=== PATIENT | female | born 2000 | race Hispanic/Latino ===

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

== ENCOUNTER 2021-12-03 10:14 | Emergency (ER) | payer OTHER ==
--- NOTE | 2021-12-03 11:24 | ER ---
Nurse's Notes [facility] Name: Evangelina Harley Age: 21 yrs Sex: Female : 2000 Arrival Date: 12/03/2021 Time: 10:17 Bed DIS5 Private MD: Diagnosis: Encounter for general adult medical examination without abnormal findings Presentation: 12/03 11:05 Chief complaint: Patient states: I'm dealing with a CPS case and I was told I need a iw mental evaluation. Coronavirus screen: At this time, the client does not indicate any symptoms associated with coronavirus-19. Ebola Screen: Patient negative for fever greater than or equal to 101.5 degrees Fahrenheit, and additional compatible Ebola Virus Disease symptoms Patient denies exposure to infectious person. Patient denies travel to an Ebola-affected area in the 21 days before illness onset. No symptoms or risks identified at this time. Initial Sepsis Screen: Does the patient meet any 2 criteria? No. Patient's initial sepsis screen is negative. Does the patient have a suspected source of infection? No. Patient's initial sepsis screen is negative. Risk Assessment: Do you want to hurt yourself or someone else? Patient reports no desire to harm self or others. Onset of symptoms was December 03, 2021. 11:05 Method Of Arrival: Ambulatory iw 11:05 Acuity: BILLY 4 iw Historical: - Allergies: 11:06 No Known Allergies; iw - Home Meds: 11:06 None [Active]; iw - PMHx: 11:06 None; iw - PSHx: 11:06 None; iw - Immunization history:: Client reports having NOT received the Covid vaccine. - Social history:: Smoking status: Reported history of juuling and/or vaping. Assessment: 10:50 Reassessment: pt not inlobby. iw Vital Signs: 11:05 BP 126 / 73; Pulse 78; Resp 16; Temp 98.1; Pulse Ox 98% on R/A; ED Course: 10:17 Patient arrived in ED. mr 11:04 Kyree Gandhi MD is Attending Physician. brandy 11:06 Triage completed. iw 11:06 Arm band placed on. iw 11:23 Parmjit Leija MD is Referral Physician. brandy 11:29 No provider procedures requiring assistance completed. Patient did not have IV access bm7 during this emergency room visit. Administered Medications: No medications were administered Outcome: :24 Discharge ordered by . brandy 11: Discharged to home ambulatory. bmEver : Condition: good : Discharge instructions given to patient, Instructed on discharge instructions, follow up and referral plans. :29 Patient left the ED. bm7 Signatures: Kyree Gandhi MD MD cha Rivera, Mary mr Williams, Irene, RN RN Di Stoddard RN RN bm7
--- NOTE | 2021-12-03 11:24 | EDPHYS ---
Physician Documentation [facility] Name: Evangelina Harley Age: 21 yrs Sex: Female : 2000 Arrival Date: 12/03/2021 Time: 10:17 Bed DIS5 Private MD: ED Physician Kyree Gandhi HPI: 12/03 11:17 This 21 yrs old Female presents to ER via Ambulatory with complaints of Mental brandy Evaluation. 11:17 pt without complaint, want to resolve CPS ISSUE. Onset: The symptoms/episode brandy began/occurred at an unknown time. Severity of symptoms: At their worst the symptoms were very mild in the emergency department the symptoms are unchanged. Historical: - Allergies: 11:06 No Known Allergies; iw - Home Meds: 11:06 None [Active]; iw - PMHx: 11:06 None; iw - PSHx: 11:06 None; iw - Immunization history:: Client reports having NOT received the Covid vaccine. - Social history:: Smoking status: Reported history of juuling and/or vaping. ROS: 11:18 Constitutional: Negative for fever, chills, and weight loss, Eyes: Negative for injury, brandy pain, redness, and discharge, ENT: Negative for injury, pain, and discharge, Neck: Negative for injury, pain, and swelling, Cardiovascular: Negative for chest pain, palpitations, and edema, Respiratory: Negative for shortness of breath, cough, wheezing, and pleuritic chest pain, Abdomen/GI: Negative for abdominal pain, nausea, vomiting, diarrhea, and constipation, Back: Negative for injury and pain, : Negative for injury, bleeding, discharge, and swelling, MS/Extremity: Negative for injury and deformity, Skin: Negative for injury, rash, and discoloration, Neuro: Negative for headache, weakness, numbness, tingling, and seizure, Psych: Negative for depression, anxiety, suicide ideation, homicidal ideation, and hallucinations, Allergy/Immunology: Negative for hives, rash, and allergies, Endocrine: Negative for neck swelling, polydipsia, polyuria, polyphagia, and marked weight changes, Hematologic/Lymphatic: Negative for swollen nodes, abnormal bleeding, and unusual bruising. Exam: 11:18 Constitutional: This is a well developed, well nourished patient who is awake, alert, brandy and in no acute distress. Head/Face: Normocephalic, atraumatic. Eyes: Pupils equal round and reactive to light, extra-ocular motions intact. Lids and lashes normal. Conjunctiva and sclera are non-icteric and not injected. Cornea within normal limits. Periorbital areas with no swelling, redness, or edema. ENT: Nares patent. No nasal discharge, no septal abnormalities noted. Tympanic membranes are normal and external auditory canals are clear. Oropharynx with no redness, swelling, or masses, exudates, or evidence of obstruction, uvula midline. Mucous membranes moist. Neck: Trachea midline, no thyromegaly or masses palpated, and no cervical lymphadenopathy. Supple, full range of motion without nuchal rigidity, or vertebral point tenderness. No Meningismus. Chest/axilla: Normal chest wall appearance and motion. Nontender with no deformity. No lesions are appreciated. Cardiovascular: Regular rate and rhythm with a normal S1 and S2. No gallops, murmurs, or rubs. Normal PMI, no JVD. No pulse deficits. Respiratory: Lungs have equal breath sounds bilaterally, clear to auscultation and percussion. No rales, rhonchi or wheezes noted. No increased work of breathing, no retractions or nasal flaring. Abdomen/GI: Soft, non-tender, with normal bowel sounds. No distension or tympany. No guarding or rebound. No evidence of tenderness throughout. Back: No spinal tenderness. No costovertebral tenderness. Full range of motion. Skin: Warm, dry with normal turgor. Normal color with no rashes, no lesions, and no evidence of cellulitis. MS/ Extremity: Pulses equal, no cyanosis. Neurovascular intact. Full, normal range of motion. Neuro: Awake and alert, GCS 15, oriented to person, place, time, and situation. Cranial nerves II-XII grossly intact. Motor strength 5/5 in all extremities. Sensory grossly intact. Cerebellar exam normal. Normal gait. Psych: Awake, alert, with orientation to person, place and time. Behavior, mood, and affect are within normal limits. Vital Signs: 11:05 BP 126 / 73; Pulse 78; Resp 16; Temp 98.1; Pulse Ox 98% on R/A; iw MDM: 11:05 Patient medically screened. [facility] 11:22 Data reviewed: vital signs, nurses notes. [facility] 12/03 11:05 Order name: EKG; Complete Time: 11:19 [facility] 12/03 11:05 Order name: EKG - Nurse/Tech; Complete Time: 11:24 [facility] 12/03 11:05 Order name: IV Saline Lock; Complete Time: 11:24 [facility] 12/03 11:05 Order name: Labs collected and sent; Complete Time: 11:24 [facility] Administered Medications: No medications were administered Disposition Summary: 12/03/21 11:24 Discharge Ordered Location: Home [facility] Problem: new brandy Symptoms: have improved brandy Condition: Stable brandy Diagnosis - Encounter for general adult medical examination without abnormal findings [facility] Followup: [facility] - With: Private Physician - When: 2 - 3 days - Reason: Recheck today's complaints, Continuance of care, Re-evaluation by your physician Followup: [facility] - With: Parmjit Leija MD - When: 2 - 3 days - Reason: Recheck today's complaints, Re-evaluation by your physician Discharge Instructions: - Discharge Summary Sheet [facility] - Health Maintenance, Female [facility] - Managing Depression, Adult [facility] - Managing Anxiety, Adult [facility] Forms: - Medication Reconciliation Form [facility] - Work release form [facility] - Thank You Letter [facility] - Antibiotic Education [facility] - Prescription Opioid Use [facility] Signatures: Dispatcher [employer] EDKyree Vega MD MD cha Williams, Irene, RN RN iw Corrections: (The following items were deleted from the chart) 11:24 11:05 Suicide Screening ([place]) [place]. [place] [id number] 11:25 11:05 Urine Dipstick-Ancillary [place]. [place] [id number] 11:25 11:05 Urine Test ordered. [place] [id number]
[2021-12-03 11:34] VITALS: BP 126/73; TEMP 98.1; O2SAT 98
== END 2021-12-03 11:29 | disposition home or self-care (01) ==
LOC: ER 10:14
DX: Z02.79 Encounter for issue of other medical certificate (principal)
CPT/HCPCS: 99281

== ENCOUNTER 2023-03-20 15:31 | Emergency (ER) | payer OTHER ==
--- NOTE | 2023-03-20 15:42 | ER ---
Nurse's Notes [facility] Name: Evangelina Harley Age: 22 yrs Sex: Female : 2000 Arrival Date: 03/20/2023 Time: 15:31 Bed IW1 Private MD: Diagnosis: Pain in left knee;Pain in right knee;Pain in left elbow;Pain in right elbow Presentation: 03/20 15:34 Chief complaint: Fell down 2-3 wet stairs this morning, c/o pain in knees and elbows. hb Negative LOC. Coronavirus screen: At this time, the client does not indicate any symptoms associated with coronavirus-19. Ebola Screen: No symptoms or risks identified at this time. Initial Sepsis Screen: Does the patient meet any 2 criteria? No. Patient's initial sepsis screen is negative. Does the patient have a suspected source of infection? No. Patient's initial sepsis screen is negative. Risk Assessment: Do you want to hurt yourself or someone else? Patient reports no desire to harm self or others. Onset of symptoms was March 20, 2023. 15:34 Method Of Arrival: Ambulatory hb 15:34 Acuity: BILLY 4 hb Historical: - Allergies: 15:36 No Known Allergies; hb - Home Meds: 15:36 None [Active]; hb - PMHx: 15:36 ADD/ADHD; hb - PSHx: 15:36 None; hb Vital Signs: 15:37 BP 126 / 76; Pulse 74; Resp 16; Temp 97.9; Pulse Ox 100% on R/A; Weight 58.97 kg; hb Height 5 ft. 3 in. ; Pain 2/10; 15:37 Body Mass Index 23.03 (58.97 kg, 160.02 cm) hb 15:37 Pain Scale: Adult hb ED Course: 15:32 Patient arrived in ED. rg4 15:32 Maria Teresa Youssef FNP-C [facility]. kb 15:32 Ryan Vigil MD is Attending Physician. kb 15:35 Triage completed. hb 15:36 Arm band placed on. hb Administered Medications: No medications were administered Outcome: 15:42 Discharge ordered by MD. kb 15:50 Patient left the ED. hb Signatures: Mikael, Maria Teresa, PERSONNEL CLERKS SUPERVISOR-C PERSONNEL CLERKS SUPERVISOR-Ckb Isabel, Bianca, RN RN hb Harry, Radha rg4
--- NOTE | 2023-03-20 15:42 | EDPHYS ---
Physician Documentation [facility] Name: Evangelina Harley Age: 22 yrs Sex: Female : 2000 Arrival Date: 03/20/2023 Time: 15:31 Bed IW1 Private MD: ED Physician Ryan Vigil HPI: 03/20 15:52 This 22 yrs old Female presents to ER via Ambulatory with complaints of Fall kb Injury. 15:52 Patient is a 22-year-old female who was walking down some wet stairs 8:00 this morning kb and fell down a few of them. States she rolled down the stairs, denies hitting head or LOC. States she completed paperwork after the fall and left work at 9 AM went home and took a nap. States she came in now because she was told she needed to follow-up and get a work note to return tomorrow. Reports pain only to bilateral knees and elbows, worse on the right side. Full range of motion of all extremities, ambulates with steady gait.. Historical: - Allergies: 15:36 No Known Allergies; hb - Home Meds: 15:36 None [Active]; hb - PMHx: 15:36 ADD/ADHD; hb - PSHx: 15:36 None; hb ROS: 15:52 Constitutional: Negative for fever, chills, and weight loss, kb 15:52 MS/extremity: Positive for pain, of the right elbow, left elbow, right knee and left knee, 15:52 All other systems are negative, Exam: 15:52 Constitutional: This is a well developed, well nourished patient who is awake, alert, kb and in no acute distress. Head/Face: Normocephalic, atraumatic. ENT: Moist Mucous membranes Cardiovascular: Regular rate Respiratory: Respirations even and unlabored. No increased work of breathing. Talking in full sentences Skin: Warm, dry with normal turgor. Normal color. Neuro: Awake and alert, GCS 15, oriented to person, place, time, and situation. Moves all extremities. Normal gait. 15:52 Musculoskeletal/extremity: Extremities: grossly normal except: noted in the right elbow: abrasion, noted in the right knee: pain, tenderness, ROM: intact in all extremities, Circulation is intact in all extremities. Sensation intact. Weight bearing: able to fully bear weight, Vital Signs: 15:37 BP 126 / 76; Pulse 74; Resp 16; Temp 97.9; Pulse Ox 100% on R/A; Weight 58.97 kg; hb Height 5 ft. 3 in. ; Pain 2/10; 15:37 Body Mass Index 23.03 (58.97 kg, 160.02 cm) hb 15:37 Pain Scale: Adult hb MDM: 15:32 Patient medically screened. kb 15:53 Differential diagnosis: abrasion, contusion, fracture, sprain, strain. Data reviewed: kb vital signs, nurses notes. Test considered but Not performed: X-ray: X-ray of knees and elbows considered but patient has full range of motion, no swelling, no bony tenderness. . Counseling: I had a detailed discussion with the patient and/or guardian regarding the historical points, exam findings, and any diagnostic results supporting the discharge/admit diagnosis, the need for outpatient follow up, a family practitioner, to return to the emergency department if symptoms worsen or persist or if there are any questions or concerns that arise at home. Administered Medications: No medications were administered Disposition: 16:01 Co-signature as Attending Physician, Ryan Vigil MD I reviewed the patient's care rn provided by the Advanced Practice Provider and agree with the diagnosis and treatment plan. Disposition Summary: 03/20/23 15:42 Discharge Ordered Notes: Location: Home Condition: Stable kb Diagnosis - Pain in left knee kb - Pain in right knee kb - Pain in left elbow kb - Pain in right elbow kb Followup: kb - With: Emergency Department - When: As needed - Reason: Worsening of condition Followup: kb - With: Private Physician - When: 2 - 3 days - Reason: Recheck today's complaints, Continuance of care, Re-evaluation by your physician Discharge Instructions: - Musculoskeletal Pain kb - Discharge Summary Sheet hb Forms: - Medication Reconciliation Form kb - Thank You Letter kb - Antibiotic Education kb - Prescription Opioid Use kb - Patient Portal Instructions kb - Leadership Thank You Letter kb - Work release form hb Signatures: Maria Teresa Youssef FNP-C GUNJAN-Ryan Rodriguez MD MD rn Baxter, Heather, RN RN hb
--- OUTSIDE RECORDS SUMMARY | 2023-03-20 15:52 | XMS REPORT | Continuity of Care Document ---
:2000 Author Organization [facility] t Address [address] [place] [address] [place] [id number] Care Team Providers Name Role Phone PCP, PATIENT DOES NOT HAVE A Primary Care Physician Unavaila ble HAMILTON MARY Attending Clinician Unavailable HENNY BRADEN Attending Clinician Unavailable Henny Braden PA-C Attending Clinician Hamilton Mary MD Attending Clinician Doctor Unassigned, [place] Attending Clinician Unavailable LILIA PEDROZA Attending Clinician Unavailable LILIA PEDROZA Attending Clinician Unavailable Ultrasound, Ang-Mfm Attending Clinician Unavailable Lilia Pedroza MD Attending Clinician Lab, Ang - Db Attending Clinician Unavailable CHET AMEZQUITA Attending Clinician Unavailable CHET AMEZQUITA Attending Clinician Unavailable Jose Andrews NP Attending Clinician BETZAIDA ROBERTS Attending Clinician Unavailable Betzaida Roberts MD Attending Clinician JOSE ANDREWS Attending Clinician Unavailable Bharti Saunders Attending Clinician BHARTI CRUMP Attending Clinician Unavailable Unknown, Attending Attending Clinician Unavailable UNKNOWN, ATTENDING Attending Clinician Unavailable Honey Beltran MD Attending Clinician HONEY BELTRAN Attending Clinician Unavailable Nelsy WHCNP, Niraj Crowe Attending Clinician [phone] NIRAJ WHITTINGTON Attending Clinician Unavailable Wallace CHIRINOSP, Juan Diego Montes Attending Clinician JUAN DIEGO GONSALEZ Attending Clinician Unavailable Ana SOTO, Kusum Attending Clinician Alexei Ch MD Attending Clinician Delgado SOTO, Reuben Attending Clinician Richard SOTO, Mari Finley Attending Clinician [facility] Attending Clinician Unavailable Dylon Cedillo MD Attending Clinician Pratik Cotto DO Attending Clinician [address] [place] [address] Room Attending Clinician Unavailable Regan Powell MD Attending Clinician BETZAIDA ROBERTS Admitting Clinician Unavailable HAMILTON MARY Admitting Clinician Unavailable Tyra SOTO, Hamilton Shankar Admitting Clinician Alexei Ch MD Admitting Clinician Betzaida Roberts MD Admitting Clinician Payers Payer Name Policy Type Policy Number Effective Date Expiration Date [facility] [id number] 2020 00:00:00 BCBS [facility] [id number] 2022 00:00:00 MEDICAID [facility] [id number] 2020 00:00:00 HTW-RMCHP [id number] 2020 00:00:00 [place] [facility] [id number] 2016 HEALTH 00:00:00 Problems Condition Condition Condition Status Onset Resolution Last Treating Co mments Source Name Details Category Date Date Treatment Clinician Date 40 weeks 40 weeks Disease Active Unive rs gestation gestation 9-08 ity of of 00:00: [place] 00 [facility] Liveborn Liveborn Disease Active Unive rs , of , of 908 it y of guillory gu[place] , , 00 Me dical born in born in [facility] by by delivery delivery 31 weeks 31 weeks Disease Active Overview: Un keyla gestation gestation 7-07 Formattin i ty of of of 00:00: g of this [place] 00 note [facility] might be [facility] different from the original. Added automatic ally from request for surgery [id number] 39 weeks 39 weeks Disease Active Unive rs gestation gestation 7-07 ity of of of 00:00: [place] 00 [facility] Depression Depression Disease Active U nivers affecting affecting 2-07 [place] of 00[place] in third in third 00 Medica l trimester, trimester, Br anch antepartum antepartum Anxiety in Anxiety in Disease Active U nivers 2-07 ity of in first in first 00:00: [place] trimester, trimester, 00 Me dical antepartum antepartum Br anch Previous Previous Disease Active Unive rs 2-07 ity of section section 00:00: [place] complicati complicati 00 Me dical ng ng [employer] [facility] , , antepartum antepartum condition condition or or complicati complicati on on 9 weeks 9 weeks Disease Active Univers gestation gestation 2-07 ity of of of 00:00: [place] 00 [facility] High-risk High-risk Disease Active Uni vers 2-07 ity of in third in third 00:00: [place] trimester trimester 00 [facility] Other Other Disease Active Univers general general 3-31 ity of counseling counseling 00:00: [place] and advice and advice 00 Me dical for for [employer] contracept contracept anson anson management management Other Other Disease Active Univers depression depression 3-31 it y of 00:00: [place] 00 [facility] Personal Personal Disease Active Unive rs history of history of 8-28 it y of asthma asthma 00:00: [place] 00 [facility] Lab test Lab test Disease Active Overview: Un keyla positive positive 8-24 Formattin ity of for for 00:00: g of this [place] detection detection 00 note Medi adriel of of might be Branch COVID-19 COVID-19 different virus virus from the original. PCR neg Anemia, Anemia, Disease Active Univers antepartum antepartum 8-24 it y of , third , third 00:00: [place] trimester trimester 00 Medi adriel Branch Anemia, Anemia, Disease Active Univers antepartum antepartum 8-24 it y of , third , third 00:00: [place] trimester trimester 00 Medi adriel Branch Vapes Vapes Disease Active 2019-05 Overview: [facility] s nicotine nicotine 0-08 Formattin ity of containing containing 00:00: g of this [place] substance substance 00 note Medi adriel might be Branch different from the original. Reports no tobacco History of History of Disease Active 2019-05 U nivers depression depression 0-08 it y of 00:00: [place] 00 Medical Branch History of History of Disease Active 2019-05 U nivers anxiety anxiety 0-08 ity of 00:00: 00 Medical Branch History of History of Disease Active 2019-05 Overview : Univers ADHD ADHD 0-08 Formattin ity of 00:00: g of this [place] 00 note Medical might be Branch different from the original. Reports not on meds History of History of Disease Active 2019-05 Overview : Univers ADHD ADHD 0-08 Formattin ity of 00:00: g of this [place] 00 note Medical might be Branch different from the original. Reports not on meds Anxiety Anxiety Disease Active Overview: Univ ers 1 Formattin ity of 00:00: g of this [place] 00 note Medical might be Branch different from the original. not on meds Allergies, Adverse Reactions, Alerts Allergy Allergy Status Severity Reaction(s) Onset Inactive Treating Comm ents Source Name Type Date Date Clinician NO KNOWN Drug Active Univers ALLERGIE Class ity of S [facility] Social History Social Habit Start Date Stop Date Quantity Comments Source ASSERTION 2022-04-22 University of 00:00:00 [facility] Gender identity Universit y of [facility] Sexual orientation Univer sity of [facility] History of Social 2023-02-27 2023-02-27 Univers ity of function 00:00:00 00:00:00 [facility] Alcohol intake 2023-01-23 2023-01-23 Ex-drinker University 00:00:00 00:00:00 (finding) [facility] Exposure to 2022-07-15 2022-07-25 Not sure University SARS-CoV-2 (event) 00:00:00 08:57:00 [facility] Tobacco use and 2022-01-07 2022-01-07 Former smokeless Uni versity of exposure 00:00:00 00:00:00 tobacco user [facility] Tobacco Comment 2022-01-07 2022-01-07 vapes Universit y of 00:00:00 00:00:00 [facility] History of tobacco 2020-05-26 User of Univer sity of use 00:00:00 smokeless [facility] Sex Assigned At [birth year] Universit y of 00:00:00 00:00:00 [facility] Smoking Status Start Date Stop Date Source Smokes tobacco daily 2022-01-07 [facility] F[facility] Start Stop Current Ordering Indication Dosage Frequency Signature Comments Components Source Medication Medication Date Date Medication? Clinician (SIG) Name Name ibuprofen Yes 600mg 600 mg, Univ ers (IBU) 9-10 Oral, Q6H ity of tablet 600 05:00: ABX, First [place] mg 00 dose on [facility] 01/15/23 at 0000, Until Discontinu ed, Routine ibuprofen 2022-0 Yes 600mg 600 mg, Univ ers (IBU) 9-10 Oral, Q6H ity of tablet 600 05:00: ABX, First [place] mg 00 dose on [facility] 01/15/23 at 0000, Until Discontinu ed, Routine ibuprofen 2022-0 Yes [id number] 600mg Take 1 Univers 600 mg 9-10 tablet by ity of tablet 00:00: mouth [place] 00 every 6 Medical (six) Branch hours. ibuprofen 2022-0 Yes [id number] 600mg Take 1 Univers 600 mg 9-10 tablet by ity of tablet 00:00: mouth [place] 00 every 6 Medical (six) Branch hours. ibuprofen 2022-0 Yes [id number] 600mg Take 1 Univers 600 mg 9-10 tablet by ity of tablet 00:00: mouth [place] 00 every 6 Medical (six) Branch hours. ibuprofen 2022-0 Yes [id number] 600mg Take 1 Univers 600 mg 9-10 tablet by ity of tablet 00:00: mouth [place] 00 every 6 Medical (six) Branch hours. ibuprofen 2022-0 Yes [id number] 600mg Take 1 Univers 600 mg 9-10 tablet by ity of tablet 00:00: mouth [place] 00 every 6 Medical (six) Branch hours. ibuprofen 2022-0 Yes [id number] 600mg Take 1 Univers 600 mg 9-10 tablet by ity of tablet 00:00: mouth [place] 00 every 6 Medical (six) Branch hours. acetaminoph 2022-0 Yes 650mg 650 mg, Un keyla en -09 Oral, Q6H ity of (TYLENOL) 05:00: ABX, First [place] tablet 650 00 dose on Medica l mg 01/14/23 Branch at 0000, Until Discontinu ed, Routine acetaminoph 2022-0 Yes 650mg 650 mg, Un keyla en 09 Oral, Q6H ity of (TYLENOL) 05:00: ABX, First [place] tablet 650 00 dose on Medica l mg 01/14/23 Branch at 0000, Until Discontinu ed, Routine ketorolac 2022- No 30mg 30 mg, Unive rs (TORADOL) 01-14- Slow IV ity of injection 05:00: 23:01 Push, Q6H [place] 30 mg 00 :00 ABX, 4 Medical doses, Branch First dose on 01/14/23 at 0000, Last dose on 01/14/23 at 1800, Routine cephALEXin 2022-0 Yes [id number] 500mg Take 1 Univers 500 mg - capsule by ity of capsule 00:00: mouth [place] 00 every 6 Medical (six) Branch hours. HYDROcodone 2022-0 Yes [id number] 1{tbl} Take 1 Un keyla -acetaminop -09 tablet by ity of hen 5-325 00:00: mouth [place] mg tablet 00 every 6 Medical (six) Branch hours as needed for Pain (scale 7-10) (Alternate with Ibuprofen) . Indication s: acute pain gabapentin 2022-0 Yes [id number] 300mg Take 1 Univers 300 mg 9-09 capsule by ity of capsule 00:00: mouth in [place] 00 the Medical morning Branch and 1 capsule at noon and 1 capsule in the evening. 2022-0 Yes [id number] 1{tbl} Take 1 Univers vitamin 9-09 tablet by ity of w/FA tablet 00:00: mouth in [place] 00 the Medical morning. Branch cephALEXin 3-0 Yes [id number] 500mg Take 1 Univers 500 mg 9-09 capsule by ity of capsule 00:00: mouth [place] 00 every 6 Medical (six) Branch hours. HYDROcodone 3-0 Yes [id number] 1{tbl} Take 1 Un keyla -acetaminop 9-09 tablet by ity of hen 5-325 00:00: mouth [place] mg tablet 00 every 6 Medical (six) Branch hours as needed for Pain (scale 7-10) (Alternate with Ibuprofen) . Indication s: acute pain gabapentin 3-0 Yes [id number] 300mg Take 1 Univers 300 mg 9-09 capsule by ity of capsule 00:00: mouth in [place] 00 the Medical morning Branch and 1 capsule at noon and 1 capsule in the evening. 3-0 Yes [id number] 1{tbl} Take 1 Univers vitamin 9-09 tablet by ity of w/FA tablet 00:00: mouth in [place] 00 the Medical morning. Branch HYDROcodone 2022-0 Yes [id number] 1{tbl} Take 1 Un keyla -acetaminop 9-09 tablet by ity of hen 5-325 00:00: mouth [place] mg tablet 00 every 6 Medical (six) Branch hours as needed for Pain (scale 7-10) (Alternate with Ibuprofen) . Indication s: acute pain gabapentin 3-0 Yes [id number] 300mg Take 1 Univers 300 mg 9-09 capsule by ity of capsule 00:00: mouth in [place] 00 the Medical morning Branch and 1 capsule at noon and 1 capsule in the evening. 2023-0 Yes [id number] 1{tbl} Take 1 Univers vitamin 9-09 tablet by ity of w/FA tablet 00:00: mouth in [place] 00 the Medical morning. Branch HYDROcodone 3-0 Yes [id number] 1{tbl} Take 1 Un keyla -acetaminop 9-09 tablet by ity of hen 5-325 00:00: mouth [place] mg tablet 00 every 6 Medical (six) Branch hours as needed for Pain (scale 7-10) (Alternate with Ibuprofen) . Indication s: acute pain gabapentin 2023-0 Yes [id number] 300mg Take 1 Univers 300 mg 9-09 capsule by ity of capsule 00:00: mouth in [place] 00 the Medical morning Branch and 1 capsule at noon and 1 capsule in the evening. 2022-0 Yes [id number] 1{tbl} Take 1 Univers vitamin 9-09 tablet by ity of w/FA tablet 00:00: mouth in [place] 00 the Medical morning. Branch HYDROcodone 2022-0 Yes [id number] 1{tbl} Take 1 Un keyla -acetaminop 9-09 tablet by ity of hen 5-325 00:00: mouth [place] mg tablet 00 every 6 Medical (six) Branch hours as needed for Pain (scale 7-10) (Alternate with Ibuprofen) . Indication s: acute pain gabapentin 2022-0 Yes [id number] 300mg Take 1 Univers 300 mg 9-09 capsule by ity of capsule 00:00: mouth in [place] 00 the Medical morning Branch and 1 capsule at noon and 1 capsule in the evening. 2022-0 Yes [id number] 1{tbl} Take 1 Univers vitamin 9-09 tablet by ity of w/FA tablet 00:00: mouth [place] 00 the Medical morning. Branch gabapentin 2022-0 Yes [id number] 300mg Take 1 Univers 300 mg 9-09 capsule by ity of capsule 00:00: mouth in [place] 00 the Medical morning Branch and 1 capsule at noon and 1 capsule in the evening. 2022-0 Yes [id number] 1{tbl} Take 1 Univers vitamin 9-09 tablet by ity of w/FA tablet 00:00: mouth in [place] 00 the Medical morning. Branch HYDROcodone 2022-0 2022- No [id number] 1{tbl} Take 1 U nivers -acetaminop 9-09 10-23 tablet by it y of hen 5-325 00:00: 00:00 mouth [place] mg tablet 00 :00 every 6 Medical (six) Branch hours as needed for Pain (scale 7-10) (Alternate with Ibuprofen) . Indication s: acute pain cephALEXin 2022-0 2022- No [id number] 500mg Take 1 Univers 500 mg 9-09 -18 capsule by ity of capsule 00:00: 00:00 mouth [place] 00 :00 every 6 Medical (six) Branch hours. HYDROcodone 2022-0 Yes 1{tbl} 1 tablet, Univers -acetaminop 01-13 Oral, ity of hen (NORCO 23:00: Q6HPRN, [place] 5) 5-325 mg 00 Starting Medi adriel tablet 1 on Fri Branch tablet 01/13/23 at 1800, Until Discontinu ed, Routine, Pain (scale 7-10), Alternate with Ibuprofen HYDROcodone Yes 1{tbl} 1 tablet, Univers -acetaminop 01-13 Oral, ity of hen (NORCO 23:00: Q6HPRN, [place] 5) 5-325 mg 00 Starting Medi adriel tablet 1 on Fri Branch tablet 01/13/23 at 1800, Until Discontinu ed, Routine, Pain (scale 7-10), Alternate with Ibuprofen cephALEXin 2022- Yes 500mg 500 mg, Un keyla (KEFLEX) 01-13 Oral, Q6H, ity of capsule 500 23:00: 22:59 28 doses, [place] mg 00 :00 First dose Medical on Mon Branch 01/13/23 at 1800, Last dose on Mon01/20/23 at 1200, DANIELE
Re ason for Anti-Infec tive: Documented Infection< br>Documen amanda Infection Site: Urine<b r>Duration of Therapy: 7 days cephALEXin 2022- Yes 500mg 500 mg, Un keyla (KEFLEX) 01-13 Oral, Q6H, ity of capsule 500 23:00: 22:59 28 doses, [place] mg 00 :00 First dose Medical on Mon Branch 01/13/23 at 1800, Last dose on Mon01/20/23 at 1200, DANIELE
Re ason for Anti-Infec tive: Documented Infection< br>Documen amanda Infection Site: Urine<b r>Duration of Therapy: 7 days acetaminoph 0 2022- No 1000mg 1,000 mg, Univers en ADULT 01-13 IV ity of (OFIRMEV) 20:00: 20:26 Infusion, [place] injection 00 :00 at 400 Medical 1,000 mg mL/hr Branch Administer over 15 Minutes, ONCE, 1 dose, On Mon01/13/23 at 1500, Routine
Indicatio n: Perioperat anson Patient gabapentin 2022-0 Yes 300mg 300 mg, Uni vers (NEURONTIN) 01-13 Oral, TID, it y of capsule 300 19:00: First dose [place] mg 00 on Mon01/13/23 at Branch 1400, Until Discontinu ed, Routine gabapentin 2022-0 Yes 300mg 300 mg, Uni vers (NEURONTIN) 01-13 Oral, TID, it y of capsule 300 19:00: First dose [place] mg 00 on Mon01/13/23 at Branch 1400, Until Discontinu ed, Routine lactated 2022-0 2023- No 1000mL at 125 [facility] ers ringers IV 01-13 09-08 mL/hr, ity of infusion 15:15: 19:04 1,000 mL, Radhames as 1,000 mL 00 :00 IV Medical Infusion, Branch ONCE, 1 dose, On Mon01/13/23 at 1015, Routine rho(D) 2022-0 Yes 300ug 300 mcg, Univer s immune 01-13 Intramuscu ity of globulin 15:04: lar, ONCE, Radhames as (RHOGAM) 19 For 1 Medical syringe 300 dose, Branch mcg Conditiona l, Routine rho(D) 0 Yes 300ug 300 mcg, Univer s immune 01-13 Intramuscu ity of globulin 15:04: lar, ONCE, [place] as (RHOGAM) 19 For 1 Medical syringe 300 dose, Branch mcg Conditiona l, Routine diphenhydrA 2022-0 Yes 25mg 25 mg, [facility] ers MINE 01-13 Slow IV ity of (BENADRYL) 15:04: Push, [place] injection 14 Q6HPRN, Medical 25 mg Starting Branch on Mon01/13/23 at 1004, Until Discontinu ed, Routine, Itching diphenhydrA 2022-0 Yes 25mg 25 mg, [facility] ers MINE 01-13 Oral, ity of (BENADRYL) 15:04: Q6HPRN, [place] tablet 25 14 Starting Medica l mg on Mon01/13/23 at 1004, Until Discontinu ed, Routine, Sleep, Itching ondansetron 2022-0 Yes 4mg 4 mg, Slow Univers (ZOFRAN 01-13 IV Push, ity of (PF)) 15:04: Q8HPRN, [place] injection 4 14 Starting Medi adriel mg on Mon/8/23 at 1004, Until Discontinu ed, Routine, Nausea and Vomiting (N/V) bisacodyL 3-0 Yes 10mg 10 mg, Univer s (DULCOLAX) 01-13 Rectal, ity of suppository 15:04: QDAILYPRN, [place] 10 mg 14 Starting Medical on Mon Branch 01/13/23 at 1004, Until Discontinu ed, Routine, Constipati on simethicone 2022-0 Yes 160mg 160 mg, Un keyla (GAS RELIEF 01-13 Oral, ity of (SIMETHICON 15:04: PC+HSPRN, [place] E)) 14 Starting Medical chewable on Mon tablet 160 01/13/23 at mg 1004, Until Discontinu ed, Routine, Gas docusate 2022-0 Yes 200mg 200 mg, Unive rs (COLACE) 01-13 Oral, ity of capsule 200 15:04: QDAILYPRN, [place] mg 14 Starting Medical on Mon Branch 01/13/23 at 1004, Until Discontinu ed, Routine, Constipati on magnesium 2022-0 Yes 30mL 30 mL, Univer s hydroxide 01-13 Oral, ity of (MILK OF 15:04: QDAILYPRN, [place] as MAGNESIA) 14 Starting Medica l 400 mg/5 mL on Mon suspension 01/13/23 at 30 mL 1004, Until Discontinu ed, Routine, Constipati on diphenhydrA 3-0 Yes 25mg 25 mg, Univ ers MINE 01-13 Slow IV ity of (BENADRYL) 15:04: Push, [place] injection 14 Q6HPRN, Medical 25 mg Starting Branch on Mon01/13/23 at 1004, Until Discontinu ed, Routine, Itching diphenhydrA 3-0 Yes 25mg 25 mg, Univ ers MINE 01-13 Oral, ity of (BENADRYL) 15:04: Q6HPRN, [place] tablet 25 14 Starting Medica l mg on Mon Branch 01/13/23 at 1004, Until Discontinu ed, Routine, Sleep, Itching ondansetron 3-0 Yes 4mg 4 mg, Slow Univers (ZOFRAN 01-13 IV Push, ity of (PF)) 15:04: Q8HPRN, [place] injection 4 14 Starting Medi adriel mg on Mon Branch 01/13/23 at 1004, Until Discontinu ed, Routine, Nausea and Vomiting (N/V) bisacodyL 2022-0 Yes 10mg 10 mg, Univer s (DULCOLAX) 08 Rectal, ity of suppository 15:04: QDAILYPRN, [place] 10 mg 14 Starting Medical on Mon Branch 01/13/23 at 1004, Until Discontinu ed, Routine, Constipati on simethicone 202-0 Yes 160mg 160 mg, Un keyla (GAS RELIEF 01-13 Oral, ity of (SIMETHICON 15:04: PC+HSPRN, [place] E)) 14 Starting Medical chewable on Mon tablet 160 01/13/23 at mg 1004, Until Discontinu ed, Routine, Gas docusate 2022-0 Yes 200mg 200 mg, Unive rs (COLACE) 01-13 Oral, ity of capsule 200 15:04: QDAILYPRN, [place] mg 14 Starting Medical on Mon Branch 01/13/23 at 1004, Until Discontinu ed, Routine, Constipati on magnesium 2022-0 Yes 30mL 30 mL, Univer s hydroxide 01-13 Oral, ity of (MILK OF 15:04: QDAILYPRN, Radh[place] as MAGNESIA) 14 Starting Medica l 400 mg/5 mL on Mon Branch suspension 01/13/23 at 30 mL 1004, Until Discontinu ed, Routine, Constipati on lactated 2023-0 2023- No 1000mL at 125 Univ ers ringers IV 01-13 09-08 mL/hr, ity of infusion 15:04: 20:44 1,000 mL, Radhames as 1,000 mL 14 :43 IV Medical Infusion, Branch PRN, 1 dose, Starting on Mon01/13/23 at 1004, Until Mon01/13/23 at 1544, Routine escitalopra 2022-0 Yes 10mg 10 mg, Univ ers m oxalate 08 Oral, ity of (LEXAPRO) 14:00: DAILY, [place] tablet 10 00 First dose Medi adriel mg on Mon Branch 01/13/23 at 0900, Until Discontinu ed, Routine escitalopra 2022-0 Yes 10mg 10 mg, Univ ers m oxalate 01-13 Oral, ity of (LEXAPRO) 14:00: DAILY, [place] tablet 10 00 First dose Medi adriel mg on Mon Branch 01/13/23 at 0900, Until Discontinu ed, Routine mupirocin 2022-0 Yes Intra-op Univ ers (BACTROBAN 01-13 ity of OINT) 2 % 13:44: [place] skin 00 Medical ointment Branch mupirocin 2022-0 Yes Intra-op Univ ers (BACTROBAN 01-13 ity of OINT) 2 % 13:44: [place] skin 00 Medical ointment Branch sodium 2022-0 Yes PRN, Univers chloride 01-13 Starting ity of 0.9 % 13:36: on Fri [place] irrigation 00 01/13/23 at Medi adriel solution 0836, Branch Until Discontinu ed, Intra-op sodium 2022-0 Yes PRN, Univers chloride 01-13 Starting ity of 0.9 % 13:36: on Fri [place] irrigation 00 01/13/23 at Medi adriel solution 0836, Branch Until Discontinu ed, Intra-op ondansetron 2022- No 4mg 4 mg, Slow Univers (ZOFRAN 01-13 IV Push, ity of (PF)) 13:30: 14:23 ONCE, 1 [place] injection 4 00 :00 dose, On Medi adriel mg Mon01/13/23 Branch at 0830, Routine naloxone 2022- No .2mg 0.2 mg, Unive rs (NARCAN) 01-13 Intramuscu ity of injection 13:24: 13:23 lar, [place] 0.2 mg 32 :32 Q3HPRN, Medical Starting Branch on Mon01/13/23 at 0824, Until 01/14/23 at 0823, Routine, Itching naloxone 2022- Yes .4mg 0.4 mg, Unive rs (NARCAN) 01-13 Slow IV ity of injection 13:23: 23:14 Push, PRN [place] 0.4 mg 59 :19 - SEE Medical INSTRUCTIO Branch NS, Starting on Mon01/13/23 at 0823, Until 01/15/23 at 1814, Routine, Analgesia Recovery naloxone 2022- Yes .4mg 0.4 mg, Unive rs (NARCAN) 01-13 Slow IV ity of injection 13:23: 23:14 Push, PRN [place] 0.4 mg 59 :19 - SEE Medical INSTRUCTIO Branch NS, Starting on Mon01/13/23 at 0823, Until Mon01/15/23 at 1814, Routine, Analgesia Recovery oxytocin 2022- No 300mL/h 300 mL/hr, Univers (PITOCIN) 01-13 IV ity of 30 units in 12:33: 15:04 Infusion, [place] NS 500 mL 05 :27 SEE-INSTRU Medi adriel IV infusion CTIONS, Branc h Starting on Mon01/13/[address] at 300 mL/hr for 1 hr then 150 mL/hr for 1 hr. For post delivery uterotonic .
mupirocin 2022- No Univers (BACTROBAN 01-13 ity of OINT) 2 % 12:15: 14:38 [place] skin 30 :00 Medical ointment Branch [id number] IV 2022- No 1000mL at 1-125 U nivers infusion 01-13 mL/hr, IV ity o f 1,000 mL 10:40: 15:04 Infusion, Radhames as 43 :36 TITRATE, Medical Starting Branch on Mon01/13/23 at 0540, Until Mon01/13/23 at 1004, Routine escitalopra Yes [id number] 10mg Take 1 Univers m oxalate 9-07 tablet by ity o f 10 mg 00:00: mouth [place] tablet 00 every Medical morning. Branch escitalopra Yes [id number] 10mg Take 1 Univers m oxalate 9-07 tablet by ity o f 10 mg 00:00: mouth [place] tablet 00 every Medical morning. Branch escitalopra 0 Yes [id number] 10mg Take 1 Univers m oxalate 9-07 tablet by ity o f 10 mg 00:00: mouth [place] tablet 00 every Medical morning. Branch escitalopra Yes [id number] 10mg Take 1 Univers m oxalate 9-07 tablet by ity o f 10 mg 00:00: mouth [place] tablet 00 every Medical morning. Branch cephALEXin 2022- Yes [id number] 500mg Take 1 Univers 500 mg 01-06 capsule by ity of capsule 00:00: 04:59 mouth 4 [place] 00 :00 (four) Medical times Branch daily for 7 days. cephALEXin 2022- Yes [id number] 500mg Take 1 Univers 500 mg 01-06 capsule by ity of capsule 00:00: 04:59 mouth 4 [place] 00 :00 (four) Medical times Branch daily for 7 days. cephALEXin 2022- Yes [id number] 500mg Take 1 Univers 500 mg 01-06 capsule by ity of capsule 00:00: 04:59 mouth 4 [place] 00 :00 (four) Medical times Branch daily for 7 days. cephALEXin 2022- No [id number] 500mg Take 1 Univers 500 mg 12-09 capsule by ity of capsule 00:00: 04:59 mouth 4 [place] 00 :00 (four) Medical times Branch daily for 7 days. Nitrofurant 2022- No [id number] 100mg Take 1 Univers oin&Nit. 12-06 capsule by ity of Macrocryst 00:00: 04:59 mouth in [place] (MACROBID) 00 :00 the Medical 100 mg morning Branch capsule and 1 capsule in the evening. Do all this for 7 days. Nitrofurant 2022- No [id number] 100mg Take 1 [facility] oin&Nit. 12-06 capsule by ity of [place] 00:00: 00:00 mouth in [place] (MACROBID) 00 :00 the Medical 100 mg morning Branch capsule and 1 capsule in the evening. Do all this for 7 days. ferrous Yes [id number] 325mg Take 1 Un keyla sulfate 7-11 tablet by ity of (IRON, 00:00: mouth in [place] FERROUS 00 the Medical SULFATE,) morning Branch 325 mg (65 and 1 mg iron) tablet in tablet the evening. ferrous 0 Yes [id number] 325mg Take 1 Un keyla sulfate 7-11 tablet by ity of (IRON, 00:00: mouth in [place] FERROUS 00 the Medical SULFATE,) morning Branch 325 mg (65 and 1 mg iron) tablet in tablet the evening. ferrous 0 Yes [id number] 325mg Take 1 Un keyla sulfate 7-11 tablet by ity of (IRON, 00:00: mouth in [place] FERROUS 00 the Medical SULFATE,) morning Branch 325 mg (65 and 1 mg iron) tablet in tablet the evening. ferrous 0 Yes [id number] 325mg Take 1 Un keyla sulfate 7-11 tablet by ity of (IRON, 00:00: mouth in [place] FERROUS 00 the Medical SULFATE,) morning Branch 325 mg (65 and 1 mg iron) tablet in tablet the evening. ferrous 0 Yes [id number] 325mg Take 1 Un keyla sulfate 7-11 tablet by ity of (IRON, 00:00: mouth in [place] FERROUS 00 the Medical SULFATE,) morning Branch 325 mg (65 and 1 mg iron) tablet in tablet the evening. ferrous Yes [id number] 325mg Take 1 Un keyla sulfate 7-11 tablet by ity of (IRON, 00:00: mouth in [place] FERROUS 00 the Medical SULFATE,) morning Branch 325 mg (65 and 1 mg iron) tablet in tablet the evening. ferrous Yes [id number] 325mg Take 1 Un keyla sulfate 7-11 tablet by ity of (IRON, 00:00: mouth in [place] FERROUS 00 the Medical SULFATE,) morning Branch 325 mg (65 and 1 mg iron) tablet in tablet the evening. ferrous Yes [id number] 325mg Take 1 Un keyla sulfate 7-11 tablet by ity of (IRON, 00:00: mouth in [place] FERROUS 00 the Medical SULFATE,) morning Branch 325 mg (65 and 1 mg iron) tablet in tablet the evening. ferrous Yes [id number] 325mg Take 1 Un keyla sulfate 7-11 tablet by ity of (IRON, 00:00: mouth in [place] FERROUS 00 the Medical SULFATE,) morning Branch 325 mg (65 and 1 mg iron) tablet in tablet the evening. ferrous 0 Yes [id number] 325mg Take 1 Un keyla sulfate 7-11 tablet by ity of (IRON, 00:00: mouth in [place] FERROUS 00 the Medical SULFATE,) morning Branch 325 mg (65 and 1 mg iron) tablet in tablet the evening. ferrous Yes [id number] 325mg Take 1 Un keyla sulfate 7-11 tablet by ity of (IRON, 00:00: mouth in [place] FERROUS 00 the Medical SULFATE,) morning Branch 325 mg (65 and 1 mg iron) tablet in tablet the evening. ferrous 2022-0 Yes [id number] 325mg Take 1 [facility] vers sulfate 7-11 tablet by ity of (IRON, 00:00: mouth in [place] FERROUS 00 the Medical SULFATE,) morning Branch 325 mg (65 and 1 mg iron) tablet in tablet the evening. ferrous 2022-0 Yes [id number] 325mg Take 1 [facility] vers sulfate 7-11 tablet by ity of (IRON, 00:00: mouth in [place] FERROUS 00 the Medical SULFATE,) morning Branch 325 mg (65 and 1 mg iron) tablet in tablet the evening. ferrous 2022-0 Yes [id number] 325mg Take 1 [facility] vers sulfate 7-11 tablet by ity of (IRON, 00:00: mouth in [place] FERROUS 00 the Medical SULFATE,) morning Branch 325 mg (65 and 1 mg iron) tablet in tablet the evening. proMETHazin 2022-0 Yes [id number] 25mg Take 1 [facility] e 25 mg 1-10 tablet by ity of tablet 00:00: mouth [place] 00 every 6 Medical (six) Branch hours as needed for Nausea and Vomiting (N/V). proMETHazin 3-0 Yes [id number] 25mg Take 1 [facility] e 25 mg 1-10 tablet by ity of tablet 00:00: mouth [place] 00 every 6 Medical (six) Branch hours as needed for Nausea and Vomiting (N/V). proMETHazin 3-0 Yes [id number] 25mg Take 1 [facility] e 25 mg 1-10 tablet by ity of tablet 00:00: mouth [place] 00 every 6 Medical (six) Branch hours as needed for Nausea and Vomiting (N/V). proMETHazin 3-0 Yes [id number] 25mg Take 1 [facility] e 25 mg 1-10 tablet by ity of tablet 00:00: mouth [place] 00 every 6 Medical (six) Branch hours as needed for Nausea and Vomiting (N/V). proMETHazin 2023-0 Yes [id number] 25mg Take 1 [facility] e 25 mg 1-10 tablet by ity of tablet 00:00: mouth [place] 00 every 6 Medical (six) Branch hours as needed for Nausea and Vomiting (N/V). proMETHazin 2023-0 Yes [id number] 25mg Take 1 [facility] e 25 mg 1-10 tablet by ity of tablet 00:00: mouth [place] 00 every 6 Medical (six) Branch hours as needed for Nausea and Vomiting (N/V). proMETHazin 2023-0 Yes [id number] 25mg Take 1 [facility] e 25 mg 1-10 tablet by ity of tablet 00:00: mouth [place] 00 every 6 Medical (six) Branch hours as needed for Nausea and Vomiting (N/V). proMETHazin 2023-0 Yes [id number] 25mg Take 1 [facility] e 25 mg 1-10 tablet by ity of tablet 00:00: mouth [place] 00 every 6 Medical (six) Branch hours as needed for Nausea and Vomiting (N/V). proMETHazin 2023-0 Yes [id number] 25mg Take 1 [facility] e 25 mg 1-10 tablet by ity of tablet 00:00: mouth [place] 00 every 6 Medical (six) Branch hours as needed for Nausea and Vomiting (N/V). proMETHazin 2023-0 Yes [id number] 25mg Take 1 [facility] e 25 mg 1-10 tablet by ity of tablet 00:00: mouth [place] 00 every 6 Medical (six) Branch hours as needed for Nausea and Vomiting (N/V). proMETHazin 2023-0 Yes [id number] 25mg Take 1 [facility] e 25 mg 1-10 tablet by ity of tablet 00:00: mouth [place] 00 every 6 Medical (six) Branch hours as needed for Nausea and Vomiting (N/V). proMETHazin 2023-0 Yes [id number] 25mg Take 1 [facility] e 25 mg 1-10 tablet by ity of tablet 00:00: mouth [place] 00 every 6 Medical (six) Branch hours as needed for Nausea and Vomiting (N/V). proMETHazin 2023-0 Yes [id number] 25mg Take 1 [facility] e 25 mg 1-10 tablet by ity of tablet 00:00: mouth [place] 00 every 6 Medical (six) Branch hours as needed for Nausea and Vomiting (N/V). proMETHazin 2023-0 Yes [id number] 25mg Take 1 [facility] e 25 mg 1-10 tablet by ity of tablet 00:00: mouth [place] 00 every 6 Medical (six) Branch hours as needed for Nausea and Vomiting (N/V). proMETHazin 2023-0 Yes [id number] 25mg Take 1 [facility] e 25 mg 1-10 tablet by ity of tablet 00:00: mouth [place] 00 every 6 Medical (six) Branch hours as needed for Nausea and Vomiting (N/V). proMETHazin 2023-0 Yes [id number] 25mg Take 1 [facility] e 25 mg 1-10 tablet by ity of tablet 00:00: mouth [place] 00 every 6 Medical (six) Branch hours as needed for Nausea and Vomiting (N/V). proMETHazin 2023-0 Yes [id number] 25mg Take 1 [facility] e 25 mg 1-10 tablet by ity of tablet 00:00: mouth [place] 00 every 6 Medical (six) Branch hours as needed for Nausea and Vomiting (N/V). proMETHazin 2023-0 Yes [id number] 25mg Take 1 [facility] e 25 mg 1-10 tablet by ity of tablet 00:00: mouth [place] 00 every 6 Medical (six) Branch hours as needed for Nausea and Vomiting (N/V). proMETHazin 2023-0 Yes [id number] 25mg Take 1 [facility] e 25 mg 1-10 tablet by ity of tablet 00:00: mouth [place] 00 every 6 Medical (six) Branch hours as needed for Nausea and Vomiting (N/V). proMETHazin 2023-0 Yes [id number] 25mg Take 1 [facility] e 25 mg 1-10 tablet by ity of tablet 00:00: mouth [place] 00 every 6 Medical (six) Branch hours as needed for Nausea and Vomiting (N/V). proMETHazin 2023-0 Yes [id number] 25mg Take 1 [facility] e 25 mg 1-10 tablet by ity of tablet 00:00: mouth [place] 00 every 6 Medical (six) Branch hours as needed for Nausea and Vomiting (N/V). proMETHazin 2023-0 Yes [id number] 25mg Take 1 [facility] e 25 mg 1-10 tablet by ity of tablet 00:00: mouth [place] 00 every 6 Medical (six) Branch hours as needed for Nausea and Vomiting (N/V). proMETHazin 2023-0 Yes [id number] 25mg Take 1 [facility] e 25 mg 1-10 tablet by ity of tablet 00:00: mouth [place] 00 every 6 Medical (six) Branch hours as needed for Nausea and Vomiting (N/V). proMETHazin 2023-0 Yes [id number] 25mg Take 1 [facility] e 25 mg 1-10 tablet by ity of tablet 00:00: mouth [place] 00 every 6 Medical (six) Branch hours as needed for Nausea and Vomiting (N/V). proMETHazin 2023-0 Yes [id number] 25mg Take 1 [facility] e 25 mg 1-10 tablet by ity of tablet 00:00: mouth [place] 00 every 6 Medical (six) Branch hours as needed for Nausea and Vomiting (N/V). proMETHazin 2023-0 Yes [id number] 25mg Take 1 [facility] e 25 mg 1-10 tablet by ity of tablet 00:00: mouth [place] 00 every 6 Medical (six) Branch hours as needed for Nausea and Vomiting (N/V). proMETHazin 2023-0 Yes [id number] 25mg Take 1 [facility] e 25 mg 1-10 tablet by ity of tablet 00:00: mouth [place] 00 every 6 Medical (six) Branch hours as needed for Nausea and Vomiting (N/V). proMETHazin 3-0 Yes [id number] 25mg Take 1 [facility] e 25 mg 1-10 tablet by ity of tablet 00:00: mouth [place] 00 every 6 Medical (six) Branch hours as needed for Nausea and Vomiting (N/V). proMETHazin 3-0 Yes [id number] 25mg Take 1 [facility] e 25 mg 1-10 tablet by ity of tablet 00:00: mouth [place] 00 every 6 Medical (six) Branch hours as needed for Nausea and Vomiting (N/V). proMETHazin 3-0 Yes [id number] 25mg Take 1 [facility] e 25 mg 1-10 tablet by ity of tablet 00:00: mouth [place] 00 every 6 Medical (six) Branch hours as needed for Nausea and Vomiting (N/V). proMETHazin 2023-0 Yes [id number] 25mg Take 1 [facility] e 25 mg 1-10 tablet by ity of tablet 00:00: mouth [place] 00 every 6 Medical (six) Branch hours as needed for Nausea and Vomiting (N/V). proMETHazin 2023-0 2023- No [id number] 25mg Take 1 [facility] e 25 mg 1-10 09-09 tablet by ity of tablet 00:00: 00:00 mouth [place] 00 :00 every 6 Medical (six) Branch hours as needed for Nausea and Vomiting (N/V). proMETHazin 2023-0 2023- No [id number] 25mg Take 1 [facility] e 25 mg 1-10 09-09 tablet by ity of tablet 00:00: 00:00 mouth [place] 00 :00 every 6 Medical (six) Branch hours as needed for Nausea and Vomiting (N/V). hydrOXYzine 2021- Yes 25mg Take 25 mg [facility] 25 mg 1-21 by mouth ity of capsule 00:00: in the [place] 00 morning Medical and 25 mg Branch in the evening. escitalopra 2021- Yes 10mg Take 10 mg [facility] m oxalate 1-21 by mouth ity of 10 mg 00:00: every [place] tablet 00 morning. Medical Branch hydrOXYzine 2021- Yes 25mg Take 25 mg [facility] 25 mg 1-21 by mouth ity of capsule 00:00: in the [place] 00 morning Medical and 25 mg Branch in the evening. escitalopra 2-1 Yes 10mg Take 10 mg [facility] m oxalate 1-21 by mouth ity of 10 mg 00:00: every [place] tablet 00 morning. Medical Branch hydrOXYzine 2021- Yes 25mg Take 25 mg [facility] 25 mg 1-21 by mouth ity of capsule 00:00: in the [place] 00 morning Medical and 25 mg Branch in the evening. escitalopra 2021-1 Yes 10mg Take 10 mg [facility] m oxalate 1-21 by mouth ity of 10 mg 00:00: every [place] tablet 00 morning. Medical Branch hydrOXYzine 2021- Yes 25mg Take 25 mg [facility] 25 mg 1-21 by mouth ity of capsule 00:00: in the [place] 00 morning Medical and 25 mg Branch in the evening. escitalopra 2021-1 Yes 10mg Take 10 mg [facility] m oxalate 1-21 by mouth ity of 10 mg 00:00: every [place] tablet 00 morning. Medical Branch hydrOXYzine 2021-1 Yes 25mg Take 25 mg [facility] 25 mg 1-21 by mouth ity of capsule 00:00: in the [place] 00 morning Medical and 25 mg Branch in the evening. escitalopra 2-1 Yes 10mg Take 10 mg [facility] m oxalate 1-21 by mouth ity of 10 mg 00:00: every [place] tablet 00 morning. Medical Branch hydrOXYzine 2021-1 Yes 25mg Take 25 mg [facility] 25 mg 1-21 by mouth ity of capsule 00:00: in the [place] 00 morning Medical and 25 mg Branch in the evening. escitalopra 2-1 Yes 10mg Take 10 mg [facility] m oxalate 1-21 by mouth ity of 10 mg 00:00: every [place] tablet 00 morning. Medical Branch hydrOXYzine 2021-05 Yes 25mg Take 25 mg [facility] 25 mg 1-21 by mouth ity of capsule 00:00: in the [place] 00 morning Medical and 25 mg Branch in the evening. escitalopra 2021-05 Yes 10mg Take 10 mg [facility] m oxalate 1-21 by mouth ity of 10 mg 00:00: every [place] tablet 00 morning. Medical Branch hydrOXYzine 2021-05 Yes 25mg Take 25 mg [facility] 25 mg 1-21 by mouth ity of capsule 00:00: in the [place] 00 morning Medical and 25 mg Branch in the evening. escitalopra 2021- Yes 10mg Take 10 mg [facility] m oxalate 1-21 by mouth ity of 10 mg 00:00: every [place] tablet 00 morning. Medical Branch hydrOXYzine 2021-05 Yes 25mg Take 25 mg [facility] 25 mg 1-21 by mouth ity of capsule 00:00: in the [place] 00 morning Medical and 25 mg Branch in the evening. escitalopra 2021- Yes 10mg Take 10 mg [facility] m oxalate 1-21 by mouth ity of 10 mg 00:00: every [place] tablet 00 morning. Medical Branch hydrOXYzine 2021-05 Yes 25mg Take 25 mg [facility] 25 mg 1-21 by mouth ity of capsule 00:00: in the [place] 00 morning Medical and 25 mg Branch in the evening. escitalopra 2021- Yes 10mg Take 10 mg [facility] m oxalate 1-21 by mouth ity of 10 mg 00:00: every [place] tablet 00 morning. Medical Branch hydrOXYzine 2021-05 Yes 25mg Take 25 mg [facility] 25 mg 1-21 by mouth ity of capsule 00:00: in the [place] 00 morning Medical and 25 mg Branch in the evening. escitalopra 2021-1 Yes 10mg Take 10 mg [facility] m oxalate 1-21 by mouth ity of 10 mg 00:00: every [place] tablet 00 morning. Medical Branch hydrOXYzine 2021-05 Yes 25mg Take 25 mg [facility] 25 mg 1-21 by mouth ity of capsule 00:00: in the [place] 00 morning Medical and 25 mg Branch in the evening. escitalopra 2021-1 Yes 10mg Take 10 mg [facility] m oxalate 1-21 by mouth ity of 10 mg 00:00: every [place] tablet 00 morning. Medical Branch hydrOXYzine 2021- Yes 25mg Take 25 mg [facility] 25 mg 1-21 by mouth ity of capsule 00:00: in the [place] 00 morning Medical and 25 mg Branch in the evening. escitalopra 2021- Yes 10mg Take 10 mg [facility] m oxalate 1-21 by mouth ity of 10 mg 00:00: every [place] tablet 00 morning. Medical Branch hydrOXYzine 2021- Yes 25mg Take 25 mg [facility] 25 mg 1-21 by mouth ity of capsule 00:00: in the [place] 00 morning Medical and 25 mg Branch in the evening. escitalopra 2021- Yes 10mg Take 10 mg [facility] m oxalate 1-21 by mouth ity of 10 mg 00:00: every [place] tablet 00 morning. Medical Branch hydrOXYzine 2021- Yes 25mg Take 25 mg [facility] 25 mg 1-21 by mouth ity of capsule 00:00: in the 00 morning Medical and 25 mg Branch in the evening. escitalopra 2021- Yes 10mg Take 10 mg [facility] m oxalate 1-21 by mouth ity of 10 mg 00:00: every [place] tablet 00 morning. Medical Branch hydrOXYzine 2021-05 Yes 25mg Take 25 mg [facility] 25 mg 1-21 by mouth ity of capsule 00:00: in the [place] 00 morning Medical and 25 mg Branch in the evening. escitalopra 2021- Yes 10mg Take 10 mg [facility] m oxalate 1-21 by mouth ity of 10 mg 00:00: every [place] tablet 00 morning. Medical Branch hydrOXYzine 2021- Yes 25mg Take 25 mg [facility] 25 mg 1-21 by mouth ity of capsule 00:00: in the [place] 00 morning Medical and 25 mg Branch in the evening. escitalopra 2-1 Yes 10mg Take 10 mg [facility] m oxalate 1-21 by mouth ity of 10 mg 00:00: every [place] tablet 00 morning. Medical Branch hydrOXYzine 2021- Yes 25mg Take 25 mg [facility] 25 mg 1-21 by mouth ity of capsule 00:00: in the [place] 00 morning Medical and 25 mg Branch in the evening. escitalopra 2-1 Yes 10mg Take 10 mg [facility] m oxalate 1-21 by mouth ity of 10 mg 00:00: every [place] tablet 00 morning. Medical Branch hydrOXYzine 2-1 Yes 25mg Take 25 mg [facility] 25 mg 1-21 by mouth ity of capsule 00:00: in the [place] 00 morning Medical and 25 mg Branch in the evening. escitalopra 2022-1 Yes 10mg Take 10 mg [facility] m oxalate 1-21 by mouth ity of 10 mg 00:00: every [place] tablet 00 morning. Medical Branch hydrOXYzine 2021-1 Yes 25mg Take 25 mg [facility] 25 mg 1-21 by mouth ity of capsule 00:00: in the [place] 00 morning Medical and 25 mg Branch in the evening. escitalopra 2022-1 Yes 10mg Take 10 mg [facility] m oxalate 1-21 by mouth ity of 10 mg 00:00: every [place] tablet 00 morning. Medical Branch hydrOXYzine 2021-1 Yes 25mg Take 25 mg [facility] 25 mg 1-21 by mouth ity of capsule 00:00: in the 00 morning Medical and 25 mg Branch in the evening. escitalopra 2022-1 Yes 10mg Take 10 mg [facility] m oxalate 1-21 by mouth ity of 10 mg 00:00: every [place] tablet 00 morning. Medical Branch hydrOXYzine 2021-1 Yes 25mg Take 25 mg [facility] 25 mg 1-21 by mouth ity of capsule 00:00: in the [place] 00 morning Medical and 25 mg Branch in the evening. escitalopra 2022-1 Yes 10mg Take 10 mg [facility] m oxalate 1-21 by mouth ity of 10 mg 00:00: every [place] tablet 00 morning. Medical Branch hydrOXYzine 2-1 Yes 25mg Take 25 mg [facility] 25 mg 1-21 by mouth ity of capsule 00:00: in the 00 morning Medical and 25 mg Branch in the evening. escitalopra 2022-1 Yes 10mg Take 10 mg [facility] m oxalate 1-21 by mouth ity of 10 mg 00:00: every [place] tablet 00 morning. Medical Branch hydrOXYzine 2-1 Yes 25mg Take 25 mg [facility] 25 mg 1-21 by mouth ity of capsule 00:00: in the 00 morning Medical and 25 mg Branch in the evening. escitalopra 2022-1 Yes 10mg Take 10 mg [facility] m oxalate 1-21 by mouth ity of 10 mg 00:00: every [place] tablet 00 morning. Medical Branch hydrOXYzine 2021- Yes 25mg Take 25 mg [facility] 25 mg 1-21 by mouth ity of capsule 00:00: in the [place] 00 morning Medical and 25 mg Branch in the evening. escitalopra 2021- Yes 10mg Take 10 mg [facility] m oxalate 1-21 by mouth ity of 10 mg 00:00: every [place] tablet 00 morning. Medical Branch hydrOXYzine 2021-05 Yes 25mg Take 25 mg [facility] 25 mg 1-21 by mouth ity of capsule 00:00: in the [place] 00 morning Medical and 25 mg Branch in the evening. escitalopra 2021- Yes 10mg Take 10 mg [facility] m oxalate 1-21 by mouth ity of 10 mg 00:00: every [place] tablet 00 morning. Medical Branch hydrOXYzine 2021-05 Yes 25mg Take 25 mg [facility] 25 mg 1-21 by mouth ity of capsule 00:00: in the 00 morning Medical and 25 mg Branch in the evening. escitalopra 2021- Yes 10mg Take 10 mg [facility] m oxalate 1-21 by mouth ity of 10 mg 00:00: every [place] tablet 00 morning. Medical Branch hydrOXYzine 2021-05 Yes 25mg Take 25 mg [facility] 25 mg 1-21 by mouth ity of capsule 00:00: in the [place] 00 morning Medical and 25 mg Branch in the evening. escitalopra 2021- Yes 10mg Take 10 mg [facility] m oxalate 1-21 by mouth ity of 10 mg 00:00: every [place] tablet 00 morning. Medical Branch hydrOXYzine 2021-05 Yes 25mg Take 25 mg [facility] 25 mg 1-21 by mouth ity of capsule 00:00: in the [place] 00 morning Medical and 25 mg Branch in the evening. escitalopra 2021- Yes 10mg Take 10 mg [facility] m oxalate 1-21 by mouth ity of 10 mg 00:00: every [place] tablet 00 morning. Medical Branch hydrOXYzine 2021-05 Yes 25mg Take 25 mg [facility] 25 mg 1-21 by mouth ity of capsule 00:00: in the [place] 00 morning Medical and 25 mg Branch in the evening. escitalopra 2021- Yes 10mg Take 10 mg [facility] m oxalate 1-21 by mouth ity of 10 mg 00:00: every [place] tablet 00 morning. Medical Branch hydrOXYzine 2021-05- No 25mg Take 25 mg [facility] 25 mg 05-28 by mouth ity of capsule 00:00: 00:00 in the [place] 00 :00 morning Medical and 25 mg Branch in the evening. escitalopra 2021-05- No 10mg Take 10 mg [facility] m oxalate 05-28 by mouth ity o f 10 mg 00:00: 00:00 every [place] tablet 00 :00 morning. Medical Branch metroNIDAZO 2021- No [id number] 500mg Take 1 [facility] LE 500 mg 01-07 tablet by ity of tablet 00:00: 04:59 mouth [place] 00 :00 every 12 Medical (twelve) Branch hours for 7 days. metroNIDAZO 2021- No [id number] 500mg Take 1 [facility] LE 500 mg 01-07 tablet by ity of tablet 00:00: 04:59 mouth [place] 00 :00 every 12 Medical (twelve) Branch hours for 7 days. metroNIDAZO 2021- No [id number] 500mg Take 1 [facility] LE 500 mg 08-10 tablet by ity of tablet 00:00: 00:00 mouth 2 [place] 00 :00 (two) Medical times Branch daily. Yes [id number] 1{tbl} Take 1 [facility] vitamin 8-31 tablet by ity of w/FA tablet 00:00: mouth [place] 00 daily. Medical Branch docusate Yes [id number] 240mg Take 1 U nivers calcium 240 8-31 capsule by it y of mg capsule 00:00: mouth once [place] 00 daily as Medical needed for Branch Constipati on. ferrous Yes [id number] 325mg Take 1 Un keyla sulfate 325 8-31 tablet by ity of mg (65 mg 00:00: mouth 2 [place] iron) 00 (two) Medical tablet times Branch daily. ibuprofen Yes [id number] 600mg Take 1 [facility] 600 mg 8-31 tablet by ity of tablet 00:00: mouth [place] 00 every 6 Medical (six) Branch hours as needed (Pain). Take with food or milk. Yes [id number] 1{tbl} Take 1 [facility] vitamin 8-31 tablet by ity of w/FA tablet 00:00: mouth [place] 00 daily. Medical Branch docusate Yes [id number] 240mg Take 1 U nivers calcium 240 8-31 capsule by it y of mg capsule 00:00: mouth once [place] 00 daily as Medical needed for Branch Constipati on. ferrous Yes [id number] 325mg Take 1 Un keyla sulfate 325 8-31 tablet by ity of mg (65 mg 00:00: mouth 2 [place] iron) 00 (two) Medical tablet times Branch daily. ibuprofen Yes [id number] 600mg Take 1 [facility] 600 mg 8-31 tablet by ity of tablet 00:00: mouth [place] 00 every 6 Medical (six) Branch hours as needed (Pain). Take with food or milk. Yes [id number] 1{tbl} Take 1 [facility] vitamin 8-31 tablet by ity of w/FA tablet 00:00: mouth [place] 00 daily. Medical Branch docusate Yes [id number] 240mg Take 1 U nivers calcium 240 8-31 capsule by it y of mg capsule 00:00: mouth once [place] 00 daily as Medical needed for Branch Constipati on. ferrous Yes [id number] 325mg Take 1 Un keyla sulfate 325 8-31 tablet by ity of mg (65 mg 00:00: mouth 2 [place] iron) 00 (two) Medical tablet times Branch daily. ibuprofen Yes [id number] 600mg Take 1 [facility] 600 mg 8-31 tablet by ity of tablet 00:00: mouth [place] 00 every 6 Medical (six) Branch hours as needed (Pain). Take with food or milk. Yes [id number] 1{tbl} Take 1 [facility] vitamin 8-31 tablet by ity of w/FA tablet 00:00: mouth [place] 00 daily. Medical Branch docusate Yes [id number] 240mg Take 1 U nivers calcium 240 8-31 capsule by it y of mg capsule 00:00: mouth once [place] 00 daily as Medical needed for Branch Constipati on. ferrous Yes [id number] 325mg Take 1 Un keyla sulfate 325 8-31 tablet by ity of mg (65 mg 00:00: mouth 2 [place] iron) 00 (two) Medical tablet times Branch daily. ibuprofen Yes [id number] 600mg Take 1 [facility] 600 mg 8-31 tablet by ity of tablet 00:00: mouth [place] 00 every 6 Medical (six) Branch hours as needed (Pain). Take with food or milk. Yes [id number] 1{tbl} Take 1 [facility] vitamin 8-31 tablet by ity of w/FA tablet 00:00: mouth [place] 00 daily. Medical Branch Yes [id number] 1{tbl} Take 1 [facility] vitamin 8-31 tablet by ity of w/FA tablet 00:00: mouth [place] 00 daily. Medical Branch Yes [id number] 1{tbl} Take 1 [facility] vitamin 8-31 tablet by ity of w/FA tablet 00:00: mouth [place] 00 daily. Medical Branch Yes [id number] 1{tbl} Take 1 [facility] vitamin 8-31 tablet by ity of w/FA tablet 00:00: mouth [place] 00 daily. Medical Branch Yes [id number] 1{tbl} Take 1 [facility] vitamin 8-31 tablet by ity of w/FA tablet 00:00: mouth [place] 00 daily. Medical Branch Yes [id number] 1{tbl} Take 1 [facility] vitamin 8-31 tablet by ity of w/FA tablet 00:00: mouth [place] 00 daily. Medical Branch Yes [id number] 1{tbl} Take 1 [facility] vitamin 8-31 tablet by ity of w/FA tablet 00:00: mouth [place] 00 daily. Medical Branch Yes [id number] 1{tbl} Take 1 [facility] vitamin 8-31 tablet by ity of w/FA tablet 00:00: mouth [place] 00 daily. Medical Branch Yes [id number] 1{tbl} Take 1 [facility] vitamin 8-31 tablet by ity of w/FA tablet 00:00: mouth [place] 00 daily. Medical Branch Yes [id number] 1{tbl} Take 1 [facility] vitamin 8-31 tablet by ity of w/FA tablet 00:00: mouth [place] 00 daily. Medical Branch Yes [id number] 1{tbl} Take 1 [facility] vitamin 8-31 tablet by ity of w/FA tablet 00:00: mouth [place] 00 daily. Medical [facility] Yes [id number] 1{tbl} Take 1 [facility] vitamin 8-31 tablet by ity of w/FA tablet 00:00: mouth [place] 00 daily. [facility] Yes [id number] 1{tbl} Take 1 [facility] vitamin 8-31 tablet by ity of w/FA tablet 00:00: mouth [place] 00 daily. [facility] Yes [id number] 1{tbl} Take 1 [facility] vitamin 8-31 tablet by ity of w/FA tablet 00:00: mouth [place] 00 daily. [facility] Yes [id number] 1{tbl} Take 1 [facility] vitamin 8-31 tablet by ity of w/FA tablet 00:00: mouth [place] 00 daily. [facility] Yes [id number] 1{tbl} Take 1 [facility] vitamin 8-31 tablet by ity of w/FA tablet 00:00: mouth [place] 00 daily. [facility] Yes [id number] 1{tbl} Take 1 [facility] vitamin 8-31 tablet by ity of w/FA tablet 00:00: mouth [place] 00 daily. [facility] Yes [id number] 1{tbl} Take 1 [facility] vitamin 8-31 tablet by ity of w/FA tablet 00:00: mouth [place] 00 daily. [facility] Yes [id number] 1{tbl} Take 1 [facility] vitamin 8-31 tablet by ity of w/FA tablet 00:00: mouth [place] 00 daily. [facility] Yes [id number] 1{tbl} Take 1 [facility] vitamin 8-31 tablet by ity of w/FA tablet 00:00: mouth [place] 00 daily. [facility] [place] Yes [id number] 1{tbl} Take 1 [facility] vitamin 8-31 tablet by ity of w/FA tablet 00:00: mouth [place] 00 daily. [facility] [place] Yes [id number] 1{tbl} Take 1 [facility] vitamin 8-31 tablet by ity of w/FA tablet 00:00: mouth [place] 00 daily. [facility] [place] Yes [id number] 1{tbl} Take 1 [facility] vitamin 8-31 tablet by ity of w/FA tablet 00:00: mouth [place] 00 daily. [facility] [place] Yes [id number] 1{tbl} Take 1 [facility] vitamin 8-31 tablet by ity of w/FA tablet 00:00: mouth [place] 00 daily. [facility] [place] Yes [id number] 1{tbl} Take 1 [facility] vitamin 8-31 tablet by ity of w/FA tablet 00:00: mouth [place] 00 daily. [facility] [place] Yes [id number] 1{tbl} Take 1 [facility] vitamin 8-31 tablet by ity of w/FA tablet 00:00: mouth [place] 00 daily. [facility] [place] Yes [id number] 1{tbl} Take 1 [facility] vitamin 8-31 tablet by ity of w/FA tablet 00:00: mouth [place] 00 daily. [facility] [place] Yes [id number] 1{tbl} Take 1 [facility] vitamin 8-31 tablet by ity of w/FA tablet 00:00: mouth [place] 00 daily. [facility] [place] Yes [id number] 1{tbl} Take 1 [facility] vitamin 8-31 tablet by ity of w/FA tablet 00:00: mouth [place] 00 daily. [facility] [place] Yes [id number] 1{tbl} Take 1 [facility] vitamin 8-31 tablet by ity of w/FA tablet 00:00: mouth [place] 00 daily. [facility] [place] Yes [id number] 1{tbl} Take 1 [facility] vitamin 8-31 tablet by ity of w/FA tablet 00:00: mouth [place] 00 daily. [facility] [place] 2022- No [id number] 1{tbl} Take 1 [facility] vitamin 8-31 09-09 tablet by [facility]y [place] [facility] [place] 2022- No [id number] 1{tbl} Take 1 [facility] vitamin 8-31 09-09 tablet by [facility]y [place] w/[place] tablet [place] daily. [facility] docusate 2022- No [id number] 240mg Take 1 [facility] calcium 240 8-31 01-10 capsule by i ty of mg capsule 00:00: 00:00 mouth once [place] 00 :00 daily as Medical needed for Branch Constipati on. ferrous 2022- No [id number] 325mg Take 1 U nivers sulfate 325 01-05 tablet by it y of mg (65 mg 00:00[place] :00 (two) Medical tablet times Branch daily. ibuprofen 2022- No [id number] 600mg Take 1 [facility] 600 mg 01-05 tablet by ity of tablet 00:00: 00:00 mouth [place] 00 :00 every 6 Medical (six) Branch hours as needed (Pain). Take with food or milk. Immunizations Ordered Filled Date Status Comments Source Immunization Name Immunization Name [facility] 2020-10-20 Completed [facility] of 00:00:00 [facility] TDAP 2020-10-20 Completed [facility] of 00:00:00 [facility] TDAP 2020-10-20 Completed University of 00:00: [facility] TDAP 2020-10-20 Completed [facility] of 00:00:00 [facility] TDAP 2020-10-20 Completed [facility] of 00[facility]00:00 [facility] TDAP 2020-10-20 Completed [facility] of 00:00:00 [facility] TDAP 2020-10-20 Completed [facility] of 00:00:00 [facility] TDAP 2020-10-20 Completed [facility] of 00[facility]00:00 [facility] TDAP 2020-10-20 Completed [facility] of 00:00:00 [facility] TDAP 2020-10-20 Completed [facility] of 00:00:00 [facility] TDAP 2020-10-20 Completed [facility] of 00:00:00 [facility] TDAP 2020-10-20 Completed [facility] of 00:00:00 [facility] TDAP 2020-10-20 Completed [facility] of 00:00:00 [facility] TDAP 2020-10-20 Completed [facility] of 00:00:00 [facility] TDAP 2020-10-20 Completed [facility] of 00:00:00 [facility] TDAP 2020-10-20 Completed [facility] of 00[facility]00:00 [facility] TDAP 2020-10-20 Completed [facility] of 00:00:00 [facility] TDAP 2020-10-20 Completed [facility] of 00:00:00 [facility] TDAP 2020-10-20 Completed University of 00:00:00 [facility] TDAP 2020-10-20 Completed [facility] of 00:00:00 [facility] TDAP 2020-10-20 Completed [facility] of 00[facility]00:00 [facility] TDAP 2020-10-20 Completed [facility] of 00:00:00 [facility] TDAP 2020-10-20 Completed [facility] of 00:00:00 [facility] TDAP 2020-10-20 Completed [facility] of 00:00:00 [facility] TDAP 2020-10-20 Completed University of 00:00:00 [facility] TDAP 2020-10-20 Completed University of 00:00:00 [facility] TDAP 2020-10-20 Completed [facility] of 00:00:00 [facility] TDAP 2020-10-20 Completed University of 00:00:00 [facility] TDAP 2020-10-20 Completed [facility] of 00:00:00 [facility] TDAP 2020-10-20 Completed University of 00:00:00 [facility] TDAP 2020-10-20 Completed University of 00:00:00 [facility] TDAP 2020-10-20 Completed University of 00:00:00 [facility] TDAP 2020-10-20 Completed University of 00:00:00 [facility] TDAP 2020-10-20 Completed University of 00:00:00 [facility] TDAP 2020-10-20 Completed University of 00:00:00 [facility] TDAP 2020-10-20 Completed University of 00:00:00 [facility] TDAP 2020-10-20 Completed University of 00:00:00 [facility] TDAP 2020-10-20 Completed University of 00:00:00 [facility] Meningococcal 2015-12-28 Completed University of Vaccine 00:00:00 [facility] Meningococcal 2015-12-28 Completed University of Vaccine 00:00:00 [facility] Meningococcal 2015-12-28 Completed University of Vaccine 00:00:00 [facility] Meningococcal 2015-12-28 Completed University of Vaccine 00:00:00 [facility] Meningococcal 2015-12-28 Completed University of Vaccine 00:00:00 [facility] Meningococcal 2015-12-28 Completed University of Vaccine 00:00:00 [facility] Meningococcal 2015-12-28 Completed University of Vaccine 00:00:00 [facility] Meningococcal 2015-12-28 Completed University of Vaccine 00:00:00 [facility] Meningococcal 2015-12-28 Completed University of Vaccine 00:00:00 [facility] Meningococcal 2015-12-28 Completed University of Vaccine 00:00:00 [facility] Meningococcal 2015-12-28 Completed University of Vaccine 00:00:00 [facility] Meningococcal 2015-12-28 Completed University of Vaccine 00:00:00 [facility] Meningococcal 2015-12-28 Completed University of Vaccine 00:00:00 [facility] Meningococcal 2015-12-28 Completed University of Vaccine 00:00:00 [facility] Meningococcal 2015-12-28 Completed University of Vaccine 00:00:00 [facility] Meningococcal 2015-12-28 Completed University of Vaccine 00:00:00 [facility] Meningococcal 2015-12-28 Completed University of Vaccine 00:00:00 [facility] Meningococcal 2015-12-28 Completed University of Vaccine 00:00:00 [facility] Meningococcal 2015-12-28 Completed University of Vaccine 00:00:00 [facility] Meningococcal 2015-12-28 Completed University of Vaccine 00:00:00 [facility] Meningococcal 2015-12-28 Completed University of Vaccine 00:00:00 [facility] Meningococcal 2015-12-28 Completed University of Vaccine 00:00:00 [facility] Meningococcal 2015-12-28 Completed University of Vaccine 00:00:00 [facility] Meningococcal 2015-12-28 Completed University of Vaccine 00:00:00 [facility] Meningococcal 2015-12-28 Completed University of Vaccine 00:00:00 [facility] Meningococcal 2015-12-28 Completed University of Vaccine 00:00:00 [facility] Meningococcal 2015-12-28 Completed University of Vaccine 00:00:00 [facility] Meningococcal 2015-12-28 Completed University of Vaccine 00:00:00 [facility] Meningococcal 2015-12-28 Completed University of Vaccine 00:00:00 [facility] Meningococcal 2015-12-28 Completed University of Vaccine 00:00:00 [facility] Meningococcal 2015-12-28 Completed University of Vaccine 00:00:00 [facility] Meningococcal 2015-12-28 Completed University of Vaccine 00:00:00 [facility] Meningococcal 2015-12-28 Completed University of Vaccine 00:00:00 [facility] Meningococcal 2015-12-28 Completed University of Vaccine 00:00:00 [facility] Meningococcal 2015-12-28 Completed University of Vaccine 00:00:00 [facility] Meningococcal 2015-12-28 Completed University of Vaccine 00:00:00 [facility] Meningococcal 2015-12-28 Completed University of Vaccine 00:00:00 [facility] Meningococcal 2015-12-28 Completed University of Vaccine 00:00:00 [facility] HPV 2010-12-13 Completed University of 00:00:00 [facility] Meningococcal 2010-12-13 Completed University of Vaccine 00:00:00 [facility] TDAP 2010-12-13 Completed University of 00:00:00 [facility] HPV 2010-12-13 Completed University of 00:00:00 [facility] Meningococcal 2010-12-13 Completed University of Vaccine 00:00:00 [facility] TDAP 2010-12-13 Completed University of 00:00:00 [facility] HPV 2010-12-13 Completed University of 00:00:00 [facility] Meningococcal 2010-12-13 Completed University of Vaccine 00:00:00 [facility] TDAP 2010-12-13 Completed University of 00:00:00 [facility] HPV 2010-12-13 Completed University of 00:00:00 [facility] Meningococcal 2010-12-13 Completed University of Vaccine 00:00:00 [facility] TDAP 2010-12-13 Completed University of 00:00:00 [facility] HPV 2010-12-13 Completed [facility] of 00:00:00 [facility] Meningococcal 2010-12-13 Completed University of Vaccine 00:00:00 [facility] TDAP 2010-12-13 Completed University of 00:00:00 [facility] HPV 2010-12-13 Completed [facility] of 00:00:00 [facility] Meningococcal 2010-12-13 Completed University of Vaccine 00:00:00 [facility] TDAP 2010-12-13 Completed [facility] of 00:00:00 [facility] HPV 2010-12-13 Completed [facility] of 00:00:00 [facility] Meningococcal 2010-12-13 Completed University of Vaccine 00:00:00 [facility] TDAP 2010-12-13 Completed [facility] of 00:00:00 [facility] HPV 2010-12-13 Completed [facility] of 00:00:00 [facility] Meningococcal 2010-12-13 Completed University of Vaccine 00:00:00 [facility] TDAP 2010-12-13 Completed [facility] of 00:00:00 [facility] HPV 2010-12-13 Completed University of 00:00:00 [place] [facility] Meningococcal 2010-12-13 Completed [facility] of Vaccine 00:00:00 [facility] TDAP 2010-12-13 Completed [facility] of 00:00:00 [facility] HPV 2010-12-13 Completed [facility] of 00:00:00 [facility] Meningococcal 2010-12-13 Completed [facility] of Vaccine 00:00:00 [facility] TDAP 2010-12-13 Completed [facility] of 00:00:00 [facility] HPV 2010-12-13 Completed [facility] of 00:00:00 [facility] Meningococcal 2010-12-13 Completed [facility] of Vaccine 00:00:00 [facility] TDAP 2010-12-13 Completed [facility] of 00:00:00 [facility] HPV 2010-12-13 Completed [facility] of 00:00:00 [facility] Meningococcal 2010-12-13 Completed [facility] of Vaccine 00:00:00 [facility] TDAP 2010-12-13 Completed [facility] of 00:00:00 [facility] HPV 2010-12-13 Completed [facility] of 00:00:00 [facility] Meningococcal 2010-12-13 Completed [facility] of Vaccine 00:00:00 [facility] TDAP 2010-12-13 Completed [facility] of 00:00:00 [facility] HPV 2010-12-13 Completed [facility] of 00:00:00 [facility] Meningococcal 2010-12-13 Completed [facility] of Vaccine 00:00:00 [facility] TDAP 2010-12-13 Completed [facility] of 00:00:00 [facility] HPV 2010-12-13 Completed [facility] of 00:00:00 [facility] Meningococcal 2010-12-13 Completed [facility] of Vaccine 00:00:00 [facility] TDAP 2010-12-13 Completed [facility] of 00:00:00 [place] [facility] HPV 2010-12-13 Completed [facility] of 00:00:00 [place] [facility] Meningococcal 2010-12-13 Completed [facility] of Vaccine 00:00:00 [facility] TDAP 2010-12-13 Completed [facility] of 00:00:00 [place] [facility] HPV 2010-12-13 Completed [facility] of 00:00:00 [place] [facility] Meningococcal 2010-12-13 Completed University of Vaccine 00:00:00 [place] [facility] TDAP 2010-12-13 Completed [facility] of 00:00:00 [place] [facility] HPV 2010-12-13 Completed [facility] of 00:00:00 [place] [facility] Meningococcal 2010-12-13 Completed [facility] of Vaccine 00:00:00 [place] [facility] TDAP 2010-12-13 Completed [facility] of 00:00:00 [facility] HPV 2010-12-13 Completed University of 00:00:00 [place] [facility] Meningococcal 2010-12-13 Completed University of Vaccine 00:00:00 [place] [facility] TDAP 2010-12-13 Completed [facility] of 00:00:00 [facility] HPV 2010-12-13 Completed [facility] of 00:00:00 [facility] Meningococcal 2010-12-13 Completed [facility] of Vaccine 00:00:00 [facility] TDAP 2010-12-13 Completed [facility] of 00:00:00 [facility] HPV 2010-12-13 Completed [facility] of 00:00:00 [facility] Meningococcal 2010-12-13 Completed [facility] of Vaccine 00:00:00 [facility] TDAP 2010-12-13 Completed [facility] of 00:00:00 [facility] HPV 2010-12-13 Completed [facility] of 00:00:00 [facility] Meningococcal 2010-12-13 Completed [facility] of Vaccine 00:00:00 [facility] TDAP 2010-12-13 Completed [facility] of 00:00:00 [facility] HPV 2010-12-13 Completed [facility] of 00:00:00 [facility] Meningococcal 2010-12-13 Completed [facility] of Vaccine 00:00:00 [facility] TDAP 2010-12-13 Completed [facility] of 00:00:00 [facility] HPV 2010-12-13 Completed [facility] of 00:00:00 [place] [facility] Meningococcal 2010-12-13 Completed [facility] of Vaccine 00:00:00 [facility] TDAP 2010-12-13 Completed [facility] of 00:00:00 [facility] HPV 2010-12-13 Completed [facility] of 00:00:00 [place] [facility] Meningococcal 2010-12-13 Completed University of Vaccine 00:00:00 [place] [facility] TDAP 2010-12-13 Completed [facility] of 00:00:00 [place] [facility] HPV 2010-12-13 Completed [facility] of 00:00:00 [facility] Meningococcal 2010-12-13 Completed [facility] of Vaccine 00:00:00 [place] [facility] TDAP 2010-12-13 Completed [facility] of 00:00:00 [facility] HPV 2010-12-13 Completed [facility] of 00:00:00 [facility] Meningococcal 2010-12-13 Completed [facility] of Vaccine 00:00:00 [place] [facility] TDAP 2010-12-13 Completed [facility] of 00:00:00 [facility] HPV 2010-12-13 Completed [facility] of 00:00:00 [facility] Meningococcal 2010-12-13 Completed University of Vaccine 00:00:00 [place] [facility] TDAP 2010-12-13 Completed [facility] of 00:00:00 [place] [facility] HPV 2010-12-13 Completed [facility] of 00:00:00 [facility] Meningococcal 2010-12-13 Completed [facility] of Vaccine 00:00:00 [facility] TDAP 2010-12-13 Completed [facility] of 00:00:00 [facility] HPV 2010-12-13 Completed [facility] of 00:00:00 [facility] Meningococcal 2010-12-13 Completed [facility] of Vaccine 00:00:00 [facility] TDAP 2010-12-13 Completed [facility] of 00:00:00 [facility] HPV 2010-12-13 Completed [facility] of 00:00:00 [facility] Meningococcal 2010-12-13 Completed [facility] of Vaccine 00:00:00 [facility] TDAP 2010-12-13 Completed [facility] of 00:00:00 [facility] HPV 2010-12-13 Completed [facility] of 00:00:00 [facility] Meningococcal 2010-12-13 Completed [facility] of Vaccine 00:00:00 [facility] TDAP 2010-12-13 Completed [facility] of 00:00:00 [facility] HPV 2010-12-13 Completed [facility] of 00:00:00 [place] [facility] Meningococcal 2010-12-13 Completed [facility] of Vaccine 00:00:00 [facility] TDAP 2010-12-13 Completed [facility] of 00:00:00 [facility] HPV 2010-12-13 Completed [facility] of 00:00:00 [place] [facility] Meningococcal 2010-12-13 Completed [facility] of Vaccine 00:00:00 [facility] TDAP 2010-12-13 Completed [facility] of 00:00:00 [facility] HPV 2010-12-13 Completed [facility] of 00:00:00 [place] [facility] Meningococcal 2010-12-13 Completed [facility] of Vaccine 00:00:00 [place] [facility] TDAP 2010-12-13 Completed [facility] of 00:00:00 [place] [facility] HPV 2010-12-13 Completed [facility] of 00:00:00 [place] [facility] Meningococcal 2010-12-13 Completed [facility] of Vaccine 00:00:00 [place] [facility] TDAP 2010-12-13 Completed [facility] of 00:00:00 [place] [facility] HPV 2010-12-13 Completed [facility] of 00:00:00 [place] [facility] Meningococcal 2010-12-13 Completed [facility] of Vaccine 00:00:00 [place] [facility] TDAP 2010-12-13 Completed [facility] of 00:00:00 [place] [facility] HPV 2010-12-13 Completed [facility] of 00:00:00 [place] [facility] Meningococcal 2010-12-13 Completed [facility] of Vaccine 00:00:00 [place] [facility] TDAP 2010-12-13 Completed [facility] of 00:00:00 [place] [facility] HPV 2010-01-14 Completed [facility] of 00:00:00 [place] [facility] HPV 2010-01-14 Completed [facility] of 00:00:00 [place] [facility] HPV 2010-01-14 Completed [facility] 00:00:00 [place] [facility] HPV 2010-01-14 Completed [facility] 00:00:00 [place] [facility] HPV 2010-01-14 Completed [facility] 00:00:00 [place] [facility] HPV 2010-01-14 Completed [facility] 00:00:00 [place] [facility] HPV 2010-01-14 Completed [facility] 00:00:00 [place] [facility] HPV 2010-01-14 Completed [facility] 00:00:00 [place] [facility] HPV 2010-01-14 Completed [facility] 00:00:00 [place] [facility] HPV 2010-01-14 Completed [facility] 00:00:00 [place] [facility] HPV 2010-01-14 Completed [facility] 00:00:00 [place] [facility] HPV 2010-01-14 Completed [facility] 00:00:00 [place] [facility] HPV 2010-01-14 Completed [facility] 00:00:00 [place] [facility] HPV 2010-01-14 Completed [facility] 00:00:00 [place] [facility] HPV 2010-01-14 Completed [facility] 00:00:00 [place] [facility] HPV 2010-01-14 Completed [facility] 00:00:00 [place] [facility] HPV 2010-01-14 Completed [facility] 00:00:00 [place] [facility] HPV 2010-01-14 Completed [facility] 00:00:00 [place] [facility] HPV 2010-01-14 Completed [facility] 00:00:00 [place] [facility] HPV 2010-01-14 Completed [facility] 00:00:00 [place] [facility] HPV 2010-01-14 Completed [facility] 00:00:00 [facility] HPV 2010-01-14 Completed [facility] 00[facility]00:00 [facility] HPV 2010-01-14 Completed [facility] 00[facility]00:00 [facility] HPV 2010-01-14 Completed [facility] 00[facility]00:00 [facility] HPV 2010-01-14 Completed [facility] 00[facility]00:00 [facility] HPV 2010-01-14 Completed [facility] 00[facility]00:00 [facility] HPV 2010-01-14 Completed [facility] 00[facility]00:00 [facility] HPV 2010-01-14 Completed [facility] 00[facility]00:00 [facility] HPV 2010-01-14 Completed [facility] 00[facility]00:00 [facility] HPV 2010-01-14 Completed [facility] 00[facility]00:00 [facility] HPV 2010-01-14 Completed [facility] 00[facility]00:00 [facility] HPV 2010-01-14 Completed [facility] 00[facility]00:00 [facility] HPV 2010-01-14 Completed [facility] 00:00:00 [facility] HPV 2010-01-14 Completed [facility] 00[facility]00 [facility] [facility] 2010-01-14 Completed [facility]00 [facility] HPV 2010-01-14 Completed [facility] 00[facility]00 [facility] HPV 2010-01-14 Completed [facility] 00[facility]:00 [facility] HPV 2010-01-14 Completed [facility] 00:00:00 [facility] HPV 2009-09-22 Completed [facility] 00:00:00 [facility] Varicella 2009-09-22 Completed [facility] (varivax)([facility] 00:00:00 [place] [facility] HPV 2009-09-22 Completed [facility] 00:00:00 [facility] Varicella 2009-09-22 Completed [facility] (varivax[facility] 00:00:00 [place] [facility] HPV 2009-09-22 Completed [facility] 00:00:00 [facility] Varicella 2009-09-22 Completed [facility] (varivax)([facility] 00:00:00 [place] [facility] HPV 2009-09-22 Completed [facility] 00:00:00 [facility] Varicella 2009-09-22 Completed [facility] (varivax)([facility] 00:00:00 [place] [facility] HPV 2009-09-22 Completed [facility] 00:00:00 [facility] Varicella 2009-09-22 Completed [facility] (varivax)([facility] 00:00:00 [place] [facility] HPV 2009-09-22 Completed [facility] 00:00:00 [facility] Varicella 2009-09-22 Completed [facility] (varivax)([facility] 00:00:00 [place] [facility] HPV 2009-09-22 Completed [facility] 00:00:00 [facility] Varicella 2009-09-22 Completed [facility] (varivax)(chicken 00:00:00 [place] [facility] HPV 2009-09-22 Completed [facility] 00:00:00 [facility] Varicella 2009-09-22 Completed [facility] (varivax)(chicken 00:00:00 [place] [facility] HPV 2009-09-22 Completed [facility] 00:00:00 [facility] Varicella 2009-09-22 Completed [facility] (varivax)(chicken 00:00:00 [place] [facility] HPV 2009-09-22 Completed [facility] 00:00:00 [facility] Varicella 2009-09-22 Completed [facility] (varivax)(chicken 00:00:00 [place] [facility] HPV 2009-09-22 Completed [facility] 00:00:00 [facility] Varicella 2009-09-22 Completed [facility] (varivax)(chicken 00:00:00 [place] [facility] HPV 2009-09-22 Completed [facility] 00[facility]00:00 [facility] Varicella 2009-09-22 Completed [facility] (varivax)(chicken 00:00:00 [place] [facility] HPV 2009-09-22 Completed [facility] 00:00:00 [facility] Varicella 2009-09-22 Completed [facility] (varivax)(chicken 00:00:00 [place] [facility] HPV 2009-09-22 Completed [facility] 00:00:00 [facility] Varicella 2009-09-22 Completed [facility] (varivax)(chicken 00:00:00 [place] [facility] HPV 2009-09-22 Completed [facility] 00:00:00 [facility] Varicella 2009-09-22 Completed [facility] (varivax)(chicken 00:00:00 [place] [facility] HPV 2009-09-22 Completed [facility] 00:00:00 [facility] Varicella 2009-09-22 Completed [facility] (varivax)(chicken 00:00:00 [place] [facility] HPV 2009-09-22 Completed [facility] 00:00:00 [facility] Varicella 2009-09-22 Completed [facility] (varivax)(chicken 00:00:00 [place] [facility] HPV 2009-09-22 Completed [facility] 00:00:00 [facility] Varicella 2009-09-22 Completed [facility] (varivax)(chicken 00:00:00 [place] [facility] HPV 2009-09-22 Completed [facility] 00:00:00 [facility] Varicella 2009-09-22 Completed [facility] (varivax)(chicken 00:00:00 [place] [facility] HPV 2009-09-22 Completed [facility] 00:00:00 [facility] Varicella 2009-09-22 Completed [facility] (varivax)(chicken 00:00:00 [place] [facility] HPV 2009-09-22 Completed [facility] 00[facility]00:00 [facility] Varicella 2009-09-22 Completed [facility] (varivax)(chicken 00:00:00 [place] [facility] HPV 2009-09-22 Completed [facility] 00[facility]00:00 [facility] Varicella 2009-09-22 Completed [facility] (varivax)(chicken 00:00:00 [place] [facility] HPV 2009-09-22 Completed [facility] 00:00:00 [facility] Varicella 2009-09-22 Completed [facility] (varivax)(chicken 00:00:00 [place] [facility] HPV 2009-09-22 Completed [facility] 00[facility]00:00 [facility] Varicella 2009-09-22 Completed [facility] (varivax)(chicken 00:00:00 [place] [facility] HPV 2009-09-22 Completed [facility] 00:00:00 [facility] Varicella 2009-09-22 Completed [facility] (varivax)(chicken 00:00:00 [place] [facility] HPV 2009-09-22 Completed [facility] 00:00:00 [facility] Varicella 2009-09-22 Completed [facility] (varivax)(chicken 00:00:00 [place] [facility] HPV 2009-09-22 Completed [facility] 00:00:00 [facility] Varicella 2009-09-22 Completed [facility] (varivax)(chicken 00:00:00 [place] [facility] HPV 2009-09-22 Completed [facility] 00:00:00 [facility] Varicella 2009-09-22 Completed [facility] (varivax)(chicken 00:00:00 [place] [facility] HPV 2009-09-22 Completed [facility] 00:00:00 [facility] Varicella 2009-09-22 Completed [facility] (varivax)(chicken 00:00:00 [place] [facility] HPV 2009-09-22 Completed [facility] 00:00:00 [facility] Varicella 2009-09-22 Completed [facility] (varivax)(chicken 00:00:00 [place] [facility] HPV 2009-09-22 Completed [facility] 00:00:00 [facility] Varicella 2009-09-22 Completed [facility] (varivax)(chicken 00:00:00 [place] [facility] HPV 2009-09-22 Completed [facility] 00:00:00 [facility] Varicella 2009-09-22 Completed [facility] (varivax)(chicken 00:00:00 [place] [facility] HPV 2009-09-22 Completed [facility] 00:00:00 [facility] Varicella 2009-09-22 Completed [facility] (varivax)(chicken 00:00:00 [place] [facility] HPV 2009-09-22 Completed [facility] 00:00:00 [facility] Varicella 2009-09-22 Completed [facility] (varivax)(chicken 00:00:00 [place] [facility] HPV 2009-09-22 Completed [facility] 00:00:00 [facility] Varicella 2009-09-22 Completed [facility] (varivax)(chicken 00:00:00 [place] [facility] HPV 2009-09-22 Completed [facility] 00:00:00 [facility] Varicella 2009-09-22 Completed [facility] (varivax)(chicken 00:00:00 [place] [facility] HPV 2009-09-22 Completed [facility] 00:00:00 [facility] Varicella 2009-09-22 Completed [facility] (varivax)(chicken 00:00:00 [place] [facility] HPV 2009-09-22 Completed [facility] 00:00:00 [facility] Varicella 2009-09-22 Completed [facility] (varivax)(chicken 00:00:00 [place] [facility] Varicella 2008-10-17 Completed [facility] (varivax)(chicken 00:00:00 [place] [facility] Varicella 2008-10-17 Completed [facility] (varivax)(chicken 00:00:00 [place] [facility] Varicella 2008-10-17 Completed [facility] (varivax)(chicken 00:00:00 [place] [facility] Varicella 2008-10-17 Completed [facility] (varivax)(chicken 00:00:00 [place] [facility] Varicella 2008-10-17 Completed [facility] (varivax)(chicken 00:00:00 [place] [facility] Varicella 2008-10-17 Completed [facility] (varivax)(chicken 00:00:00 [place] [facility] Varicella 2008-10-17 Completed [facility] (varivax)(chicken 00:00:00 [place] [facility] Varicella 2008-10-17 Completed [facility] (varivax)(chicken 00:00:00 [place] [facility] Varicella 2008-10-17 Completed [facility] (varivax)(chicken 00:00:00 [place] [facility] Varicella 2008-10-17 Completed [facility] (varivax)(chicken 00:00:00 [place] [facility] Varicella 2008-10-17 Completed [facility] (varivax)(chicken 00:00:00 [place] [facility] Varicella 2008-10-17 Completed [facility] (varivax)(chicken 00:00:00 [place] [facility] Varicella 2008-10-17 Completed [facility] (varivax)(chicken 00:00:00 [place] [facility] Varicella 2008-10-17 Completed [facility] (varivax)(chicken 00:00:00 [place] [facility] Varicella 2008-10-17 Completed [facility] (varivax)(chicken 00:00:00 [place] [facility] Varicella 2008-10-17 Completed [facility] (varivax)(chicken 00:00:00 [place] [facility] Varicella 2008-10-17 Completed [facility] (varivax)(chicken 00:00:00 [place] [facility] Varicella 2008-10-17 Completed [facility] (varivax)(chicken 00:00:00 [place] [facility] Varicella 2008-10-17 Completed [facility] (varivax)(chicken 00:00:00 [place] [facility] Varicella 2008-10-17 Completed [facility] (varivax)(chicken 00:00:00 [place] [facility] Varicella 2008-10-17 Completed [facility] (varivax)(chicken 00:00:00 [place] [facility] Varicella 2008-10-17 Completed [facility] (varivax)(chicken 00:00:00 [place] [facility] Varicella 2008-10-17 Completed [facility] (varivax)(chicken 00:00:00 [place] [facility] Varicella 2008-10-17 Completed [facility] (varivax)(chicken 00:00:00 [place] [facility] Varicella 2008-10-17 Completed [facility] (varivax)(chicken 00:00:00 [place] [facility] Varicella 2008-10-17 Completed [facility] (varivax)(chicken 00:00:00 [place] [facility] Varicella 2008-10-17 Completed [facility] (varivax)(chicken 00:00:00 [place] [facility] Varicella 2008-10-17 Completed [facility] (varivax)(chicken 00:00:00 [place] [facility] Varicella 2008-10-17 Completed [facility] (varivax)(chicken 00:00:00 [place] [facility] Varicella 2008-10-17 Completed [facility] (varivax)(chicken 00:00:00 [place] [facility] Varicella 2008-10-17 Completed [facility] (varivax)(chicken 00:00:00 [place] [facility] Varicella 2008-10-17 Completed [facility] (varivax)(chicken 00:00:00 [place] [facility] Varicella 2008-10-17 Completed [facility] (varivax)(chicken 00:00:00 [place] [facility] Varicella 2008-10-17 Completed [facility] (varivax)(chicken 00:00:00 [place] [facility] Varicella 2008-10-17 Completed [facility] (varivax)(chicken 00:00:00 [place] [facility] Varicella 2008-10-17 Completed [facility] (varivax)(chicken 00:00:00 [place] [facility] Varicella 2008-10-17 Completed [facility] (varivax)(chicken 00:00:00 [place] [facility] Varicella 2008-10-17 Completed [facility] (varivax)([facility]icken 00:00:00 [place] [facility] DTAP 2003-12-02 Completed [facility] 00:00:00 [facility] DTAP 2003-12-02 Completed [facility] 00:00:00 [facility] DTAP 2003-12-02 Completed [facility] 00[facility]00:00 [facility] DTAP 2003-12-02 Completed [facility] 00:00:00 [facility] DTAP 2003-12-02 Completed [facility] 00:00:00 [facility] DTAP 2003-12-02 Completed [facility] 00:00:00 [facility] DTAP 2003-12-02 Completed [facility] 00:00:00 [facility] DTAP 2003-12-02 Completed [facility] 00:00:00 [facility] DTAP 2003-12-02 Completed [facility] 00:00:00 [facility] DTAP 2003-12-02 Completed [facility] 00[facility]00:00 [facility] DTAP 2003-12-02 Completed [facility] 00:00:00 [facility] DTAP 2003-12-02 Completed [facility] 00:00:00 [facility] DTAP 2003-12-02 Completed [facility] 00:00:00 [facility] DTAP 2003-12-02 Completed [facility] 00:00:00 [facility] DTAP 2003-12-02 Completed [facility] 00:00:00 [facility] DTAP 2003-12-02 Completed [facility] 00:00:00 [facility] DTAP 2003-12-02 Completed [facility] 00:00:00 [facility] DTAP 2003-12-02 Completed [facility] 00:00:00 [facility] DTAP 2003-12-02 Completed [facility] 00:00:00 [facility] DTAP 2003-12-02 Completed [facility] 00:00:00 [facility] DTAP 2003-12-02 Completed [facility] 00:00:00 [facility] DTAP 2003-12-02 Completed [facility] 00:00:00 [facility] DTAP 2003-12-02 Completed [facility] 00:00:00 [facility] DTAP 2003-12-02 Completed [facility] 00:00:00 [place] [facility] DTAP 2003-12-02 Completed [facility] 00:00:00 [place] [facility] DTAP 2003-12-02 Completed [facility] 00:00:00 [place] [facility] DTAP 2003-12-02 Completed [facility] 00:00:00 [place] [facility] DTAP 2003-12-02 Completed [facility] 00:00:00 [place] [facility] DTAP 2003-12-02 Completed [facility] 00:00:00 [place] [facility] DTAP 2003-12-02 Completed [facility] 00:00:00 [place] [facility] DTAP 2003-12-02 Completed [facility] 00:00:00 [place] [facility] DTAP 2003-12-02 Completed [facility] 00:00:00 [place] [facility] DTAP 2003-12-02 Completed [facility] 00:00:00 [place] [facility] DTAP 2003-12-02 Completed [facility] 00:00:00 [place] [facility] DTAP 2003-12-02 Completed [facility] 00:00:00 [place] [facility] DTAP 2003-12-02 Completed [facility] 00:00:00 [place] [facility] DTAP 2003-12-02 Completed [facility] 00:00:00 [place] [facility] DTAP 2003-12-02 Completed [facility] 00:00:00 [place] [facility] DTAP 2001-02-22 Completed [facility] 00:00:00 [place] [facility] DTAP 2001-02-22 Completed [facility] 00:00:00 [place] [facility] DTAP 2001-02-22 Completed [facility] 00:00:00 [place] [facility] DTAP 2001-02-22 Completed [facility] 00:00:00 [place] [facility] DTAP 2001-02-22 Completed [facility] 00:00:00 [place] [facility] DTAP 2001-02-22 Completed [facility] 00:00:00 [facility] DTAP 2001-02-22 Completed [facility] 00:00:00 [place] [facility] DTAP 2001-02-22 Completed [facility] 00:00:00 [place] [facility] DTAP 2001-02-22 Completed [facility] 00:00:00 [place] [facility] DTAP 2001-02-22 Completed [facility] 00:00:00 [place] [facility] DTAP 2001-02-22 Completed [facility] 00:00:00 [place] [facility] DTAP 2001-02-22 Completed [facility] 00:00:00 [place] [facility] DTAP 2001-02-22 Completed [facility] 00:00:00 [place] [facility] DTAP 2001-02-22 Completed [facility] 00:00:00 [facility] DTAP 2001-02-22 Completed [facility] 00[facility]00:00 [facility] DTAP 2001-02-22 Completed [facility] 00:00:00 [facility] DTAP 2001-02-22 Completed [facility] 00:00:00 [facility] DTAP 2001-02-22 Completed [facility] 00:00:00 [facility] DTAP 2001-02-22 Completed [facility] 00:00:00 [facility] DTAP 2001-02-22 Completed [facility] 00[facility]00:00 [facility] DTAP 2001-02-22 Completed [facility] 00[facility]00:00 [facility] DTAP 2001-02-22 Completed [facility] 00[facility]00:00 [facility] DTAP 2001-02-22 Completed [facility] 00[facility]00:00 [facility] DTAP 2001-02-22 Completed [facility] 00:00:00 [facility] DTAP 2001-02-22 Completed [facility] 00:00:00 [facility] DTAP 2001-02-22 Completed [facility] 00:00:00 [facility] DTAP 2001-02-22 Completed [facility] 00:00:00 [facility] DTAP 2001-02-22 Completed [facility] 00:00:00 [facility] DTAP 2001-02-22 Completed [facility] 00:00:00 [facility] DTAP 2001-02-22 Completed [facility] 00:00:00 [facility] DTAP 2001-02-22 Completed [facility] 00:00:00 [facility] DTAP 2001-02-22 Completed [facility] 00:00:00 [facility] DTAP 2001-02-22 Completed [facility] 00:00:00 [facility] DTAP 2001-02-22 Completed [facility] 00:00:00 [facility] DTAP 2001-02-22 Completed [facility] 00:00:00 [facility] DTAP 2001-02-22 Completed [facility] 00:00:00 [facility] DTAP 2001-02-22 Completed [facility] 00:00:00 [facility] DTAP 2001-02-22 Completed [facility] 00:00:00 [facility] Varicella 2000-11-06 Completed [facility] (varivax)(chicken 00:00:00 [facility] edical pox) Branch Varicella 2000-11-06 Completed [facility] (varivax)([facility] 00:00:00 [place] [facility] Varicella 2000-11-06 Completed [facility] (varivax)(chicken 00:00:00 [place] [facility] Varicella 2000-11-06 Completed [facility] (varivax)(chicken 00:00:00 [place] [facility] Varicella 2000-11-06 Completed [facility] (varivax)(chicken 00:00:00 [place] [facility] Varicella 2000-11-06 Completed [facility] (varivax)(chicken 00:00:00 [place] [facility] Varicella 2000-11-06 Completed [facility] (varivax)(chicken 00:00:00 [place] [facility] Varicella 2000-11-06 Completed [facility] (varivax)(chicken 00:00:00 [place] [facility] Varicella 2000-11-06 Completed [facility] (varivax)(chicken 00:00:00 [place] [facility] Varicella 2000-11-06 Completed [facility] (varivax)(chicken 00:00:00 [place] [facility] Varicella 2000-11-06 Completed [facility] (varivax)(chicken 00:00:00 [place] [facility] Varicella 2000-11-06 Completed [facility] (varivax)(chicken 00:00:00 [place] [facility] Varicella 2000-11-06 Completed [facility] (varivax)(chicken 00:00:00 [place] [facility] Varicella 2000-11-06 Completed [facility] (varivax)(chicken 00:00:00 [place] [facility] Varicella 2000-11-06 Completed [facility] (varivax)(chicken 00:00:00 [place] [facility] Varicella 2000-11-06 Completed [facility] (varivax)(chicken 00:00:00 [place] [facility] Varicella 2000-11-06 Completed [facility] (varivax)(chicken 00:00:00 [place] [facility] Varicella 2000-11-06 Completed [facility] (varivax)(chicken 00:00:00 [place] [facility] Varicella 2000-11-06 Completed [facility] (varivax)(chicken 00:00:00 [place] [facility] Varicella 2000-11-06 Completed [facility] (varivax)(chicken 00:00:00 [place] [facility] Varicella 2000-11-06 Completed [facility] (varivax)(chicken 00:00:00 [place] [facility] Varicella 2000-11-06 Completed [facility] (varivax)(chicken 00:00:00 [place] [facility] Varicella 2000-11-06 Completed [facility] (varivax)(chicken 00:00:00 [place] [facility] Varicella 2000-11-06 Completed [facility] (varivax)(chicken 00:00:00 [place] [facility] Varicella 2000-11-06 Completed [facility] (varivax)(chicken 00:00:00 [place] [facility] Varicella 2000-11-06 Completed [facility] (varivax)(chicken 00:00:00 [place] [facility] Varicella 2000-11-06 Completed [facility] (varivax)(chicken 00:00:00 [place] [facility] Varicella 2000-11-06 Completed [facility] (varivax)(chicken 00:00:00 [place] [facility] Varicella 2000-11-06 Completed [facility] (varivax)(chicken 00:00:00 [place] [facility] Varicella 2000-11-06 Completed [facility] (varivax)(chicken 00:00:00 [place] [facility] Varicella 2000-11-06 Completed [facility] (varivax)(chicken 00:00:00 [place] [facility] Varicella 2000-11-06 Completed [facility] (varivax)(chicken 00:00:00 [place] [facility] Varicella 2000-11-06 Completed [facility] (varivax)(chicken 00:00:00 [place] [facility] Varicella 2000-11-06 Completed [facility] (varivax)(chicken 00:00:00 [place] [facility] Varicella 2000-11-06 Completed [facility] (varivax)(chicken 00:00:00 [place] [facility] Varicella 2000-11-06 Completed [facility] (varivax)(chicken 00:00:00 [place] [facility] Varicella 2000-11-06 Completed [facility] (varivax)(chicken 00:00:00 [place] [facility] Varicella 2000-11-06 Completed [facility] (varivax)(chicken 00:00:00 [facility] edical pox) Branch DTAP 2000-05-10 Completed [facility] 00:00:00 [place] [facility] DTAP 2000-05-10 Completed [facility] 00:00:00 [place] [facility] DTAP 2000-05-10 Completed [facility] 00:00:00 [place] [facility] DTAP 2000-05-10 Completed [facility] 00:00:00 [place] [facility] DTAP 2000-05-10 Completed [facility] 00:00:00 [place] [facility] DTAP 2000-05-10 Completed [facility] 00:00:00 [place] [facility] DTAP 2000-05-10 Completed [facility] 00:00:00 [place] [facility] DTAP 2000-05-10 Completed [facility] 00:00:00 [place] [facility] DTAP 2000-05-10 Completed [facility] 00:00:00 [place] [facility] DTAP 2000-05-10 Completed [facility] 00:00:00 [place] [facility] DTAP 2000-05-10 Completed [facility] 00:00:00 [facility] DTAP 2000-05-10 Completed [facility] 00:00:00 [place] [facility] DTAP 2000-05-10 Completed [facility] 00:00:00 [place] [facility] DTAP 2000-05-10 Completed [facility] 00:00:00 [place] [facility] DTAP 2000-05-10 Completed [facility] 00:00:00 [place] [facility] DTAP 2000-05-10 Completed [facility] 00:00:00 [place] [facility] DTAP 2000-05-10 Completed [facility] 00:00:00 [place] [facility] DTAP 2000-05-10 Completed [facility] 00:00:00 [place] [facility] DTAP 2000-05-10 Completed [facility] 00:00:00 [place] [facility] DTAP 2000-05-10 Completed [facility] 00:00:00 [place] [facility] DTAP 2000-05-10 Completed [facility] 00:00:00 [place] [facility] DTAP 2000-05-10 Completed [facility] 00:00:00 [place] [facility] DTAP 2000-05-10 Completed [facility] 00:00:00 [place] [facility] DTAP 2000-05-10 Completed [facility] 00:00:00 [place] [facility] DTAP 2000-05-10 Completed [facility] 00:00:00 [place] [facility] DTAP 2000-05-10 Completed [facility] 00:00:00 [place] [facility] DTAP 2000-05-10 Completed [facility] 00:00:00 [place] [facility] DTAP 2000-05-10 Completed [facility] 00:00:00 [place] [facility] Branch DTAP 2000-05-10 Completed [facility] 00:00:00 [facility] DTAP 2000-05-10 Completed [facility] 00:00:00 [facility] DTAP 2000-05-10 Completed [facility] 00:00:00 [facility] DTAP 2000-05-10 Completed [facility] 00:00:00 [facility] DTAP 2000-05-10 Completed [facility] 00:00:00 [facility] DTAP 2000-05-10 Completed [facility] 00:00:00 [facility] DTAP 2000-05-10 Completed [facility] 00:00:00 [facility] DTAP 2000-05-10 Completed [facility] 00:00:00 [facility] DTAP 2000-05-10 Completed [facility] 00:00:00 [facility] DTAP 2000-05-10 Completed [facility] 00:00:00 [facility] DTAP 2000-02-26 Completed [facility] 00:00:00 [facility] DTAP 2000-02-26 Completed [facility] 00:00:00 [facility] DTAP 2000-02-26 Completed [facility] 00:00:00 [facility] DTAP 2000-02-26 Completed [facility] 00:00:00 [facility] DTAP 2000-02-26 Completed [facility] 00:00:00 [facility] DTAP 2000-02-26 Completed [facility] 00:00:00 [facility] DTAP 2000-02-26 Completed [facility] 00:00:00 [facility] DTAP 2000-02-26 Completed [facility] 00:00:00 [facility] DTAP 2000-02-26 Completed [facility] 00:00:00 [facility] DTAP 2000-02-26 Completed [facility] 00:00:00 [facility] DTAP 2000-02-26 Completed [facility] 00:00:00 [facility] DTAP 2000-02-26 Completed [facility] 00:00:00 [facility] DTAP 2000-02-26 Completed [facility] 00:00:00 [facility] DTAP 2000-02-26 Completed [facility] 00:00:00 [facility] DTAP 2000-02-26 Completed [facility] 00:00:00 [facility] DTAP 2000-02-26 Completed [facility] 00:00:00 [facility] DTAP 2000-02-26 Completed University of 00:00:00 [facility] DTAP 2000-02-26 Completed University of 00:00:00 [facility] DTAP 2000-02-26 Completed [facility] of 00:00:00 [facility] DTAP 2000-02-26 Completed University of 00:00:00 [facility] DTAP 2000-02-26 Completed University of 00:00:00 [facility] DTAP 2000-02-26 Completed University of 00:00:00 [facility] DTAP 2000-02-26 Completed University of 00:00:00 [facility] DTAP 2000-02-26 Completed University of 00:00:00 [facility] DTAP 2000-02-26 Completed University of 00:00:00 [facility] DTAP 2000-02-26 Completed University of 00:00:00 [facility] DTAP 2000-02-26 Completed University of 00:00:00 [facility] DTAP 2000-02-26 Completed University of 00:00:00 [facility] DTAP 2000-02-26 Completed University of 00:00:00 [facility] DTAP 2000-02-26 Completed University of 00:00:00 [facility] DTAP 2000-02-26 Completed University of 00:00:00 [facility] DTAP 2000-02-26 Completed University of 00:00:00 [facility] DTAP 2000-02-26 Completed University of 00:00:00 [facility] DTAP 2000-02-26 Completed University of 00:00:00 [facility] DTAP 2000-02-26 Completed University of 00:00:00 [facility] DTAP 2000-02-26 Completed University of 00:00:00 [facility] DTAP 2000-02-26 Completed University of 00:00:00 [facility] DTAP 2000-02-26 Completed University of 00:00:00 [facility] DTAP 1999 Completed University of 00:00:00 [facility] Hep B, Adol or Pedi 1999 Completed Unive rsity of Dosage 00:00:00 [facility] HIB 4 Dose Schedule 1999 Completed Unive rsity of 00:00:00 [facility] Polio (IPV/OPV) 1999 Completed Universit y of 00:00:00 [facility] DTAP 1999 Completed [facility] 00:00:00 [facility] Hep B, Adol or Pedi 1999 Completed Unive rsity of Dosage 00:00:00 [facility] HIB 4 Dose Schedule 1999 Completed Unive rsity of 00:00:00 [facility] Polio (IPV/OPV) 1999 Completed [facility] 00:00:[address] [facility] DTAP 1999 Completed [facility] 00:00:00 [facility] Hep B, Adol or Pedi 1999 Completed Unive rsity of Dosage 00:00:00 [facility] HIB 4 Dose Schedule 1999 Completed Unive rsity of 00:00:00 [facility] Polio (IPV/OPV) 1999 Completed [facility] 00:00:00 [facility] DTAP 1999 Completed [facility] 00:00:00 [facility] Hep B, Adol or Pedi 1999 Completed Unive rsity of Dosage 00:00:00 [facility] HIB 4 Dose Schedule 1999 Completed Unive rsity of 00:00:00 [facility] Polio (IPV/OPV) 1999 Completed [facility] 00:00:00 [facility] DTAP 1999 Completed [facility] 00:00:00 [facility] Hep B, Adol or Pedi 1999 Completed Unive rsity of Dosage 00:00:00 [facility] HIB 4 Dose Schedule 1999 Completed Unive rsity of 00:00:00 [facility] Polio (IPV/OPV) 1999 Completed Universit y of 00:00:00 [facility] Hep B, Adol or Pedi 1999 Completed Unive rsity of Dosage 00:00:00 [facility] Hep B, Adol or Pedi 1999 Completed Unive rsity of Dosage 00:00:00 [facility] Hep B, Adol or Pedi 1999 Completed Unive rsity of Dosage 00:00:00 [facility] Hep B, Adol or Pedi 1999 Completed Unive rsity of Dosage 00:00:00 [facility] Hep B, Adol or Pedi 1999 Completed Unive rsity of Dosage 00:00:00 [facility] DTAP Unknown Completed [facility] DTAP Unknown Completed [facility] DTAP Unknown Completed [facility] DTAP Unknown Completed [facility] HPV Unknown Completed [facility] HPV Unknown Completed [facility] HPV Unknown Completed [facility] Meningococcal Unknown Completed [facility] Vaccine [facility] Meningococcal Unknown Completed [facility] TDAP Unknown Completed [facility] Varicella Unknown Completed [facility] (varivax[facility] [place] [facility] Varicella Unknown Completed [facility] (varivax[facility] [place] [facility] Varicella Unknown Completed [facility] (varivax[facility] [place] [facility] TDAP Unknown Completed [facility] DTAP Unknown Completed [facility] DTAP Unknown Completed [facility] DTAP Unknown Completed [facility] DTAP Unknown Completed [facility] HPV Unknown Completed [facility] HPV Unknown Completed [facility] HPV Unknown Completed [facility] Meningococcal Unknown Completed [facility] Meningococcal Unknown Completed [facility] TDAP Unknown Completed [facility] Varicella Unknown Completed [facility] (varivax[facility] [place] [facility] Varicella Unknown Completed [facility] (varivax[facility] [place] [facility] Varicella Unknown Completed [facility] (varivax[facility] [place] [facility] TDAP Unknown Completed [facility] DTAP Unknown Completed [facility] DTAP Unknown Completed [facility] DTAP Unknown Completed [facility] DTAP Unknown Completed [facility] HPV Unknown Completed [facility] HPV Unknown Completed [facility] HPV Unknown Completed [facility] Meningococcal Unknown Completed [facility] Meningococcal Unknown Completed [facility] TDAP Unknown Completed [facility] Varicella Unknown Completed [facility] (varivax[facility] [place] [facility] Varicella Unknown Completed [facility] (varivax[facility] [place] [facility] Varicella Unknown Completed [facility] (varivax[facility] [place] [facility] TDAP Unknown Completed [facility] Vital Signs Vital Name Observation Time Observation Value Comments Source Systolic blood 2023-02-27 20:49:00 102 mm[Hg] Univer sity of pressure [facility] Diastolic blood 2023-02-27 20:49:00 63 mm[Hg] Unive rsity of pressure [facility] Heart rate 2023-02-27 20:49:00 61 /min [facility] Body temperature 2023-02-27 20:49:00 36.78 Rhonda Univ ersity of [facility] Respiratory rate 2023-02-27 20:49:00 17 /min Univ ersity of [facility] Body height 2023-02-27 20:49:00 162.6 cm [facility] Body weight 2023-02-27 20:49:00 66.497 kg [facility] BMI 2023-02-27 20:49:00 25.16 kg/m2 [facility] Systolic blood 2023-01-23 18:52:00 116 mm[Hg] Univer sity of pressure [facility] Diastolic blood 2023-01-23 18:52:00 71 mm[Hg] Unive rsity of pressure [facility] Heart rate 2023-01-23 18:52:00 78 /min [facility] Body temperature 2023-01-23 18:52:00 37.11 Rhonda [facility] Respiratory rate 2023-01-23 18:52:00 18 /min Univ ersity of [facility] Body height 2023-01-23 18:52:00 162.6 cm [facility] Body weight 2023-01-23 18:52:00 69.4 kg [facility] BMI 2023-01-23 18:52:00 26.26 kg/m2 [facility] Systolic blood 2023-01-15 12:39:00 117 mm[Hg] Univer sity of pressure [facility] Diastolic blood 2023-01-15 12:39:00 56 mm[Hg] Unive rsity of pressure [facility] Heart rate 2023-01-15 12:39:00 70 /min [facility] Body temperature 2023-01-15 12:39:00 37.11 Rhonda Univ [facility] Respiratory rate 2023-01-15 12:39:00 18 /min Univ ersity of [facility] Oxygen saturation in 2023-01-15 12:39:00 100 /min University of Arterial blood by [facility] Pulse oximetry Branch Body height 2023-01-13 11:02:00 162.6 cm [facility] Body weight 2023-01-13 11:02:00 80.74 kg [facility] BMI 2023-01-13 11:02:00 30.55 kg/m2 [facility] Heart rate 2023-01-13 12:27:00 86 /min [facility] Oxygen saturation in 2023-01-13 12:27:00 99 /min University of Arterial blood by [facility] Pulse oximetry Branch Systolic blood 2023-01-13 12:25:00 109 mm[Hg] Univer sity of pressure [facility] Diastolic blood 2023-01-13 12:25:00 63 mm[Hg] Unive rsity of pressure [facility] Body temperature 2023-01-13 12:25:00 36.61 Rhonda Univ [facility] Respiratory rate 2023-01-13 11:02:00 18 /min Univ ersity [facility] Body height 2023-01-13 11:02:00 162.6 cm [facility] Body weight 2023-01-13 11:02:00 80.74 kg [facility] BMI 2023-01-13 11:02:00 30.55 kg/m2 [facility] Systolic blood 2023-01-12 18:49:00 119 mm[Hg] Univer sity of pressure [facility] Diastolic blood 2023-01-12 18:49:00 75 mm[Hg] Unive rsity of pressure [facility] Heart rate 2023-01-12 18:49:00 81 /min [facility] Respiratory rate 2023-01-12 18:49:00 18 /min Univ ers[facility] Body height 2023-01-12 18:49:00 162.6 cm [facility] Body weight 2023-01-12 18:49:00 82.01 kg [facility] BMI 2023-01-12 18:49:00 31.03 kg/m2 [facility] Systolic blood 2023-01-03 19:38:00 112 mm[Hg] Univer sity of pressure [facility] Diastolic blood 2023-01-03 19:38:00 69 mm[Hg] Unive rsity of pressure [facility] Heart rate 2023-01-03 19:38:00 70 /min [facility] Body temperature 2023-01-03 19:38:00 36.83 Rhonda [facility] Respiratory rate 2023-01-03 19:38:00 18 /min Univ ersity [facility] Body height 2023-01-03 19:38:00 162.6 cm [facility] Body weight 2023-01-03 19:38:00 81.375 kg [facility] BMI 2023-01-03 19:38:00 30.79 kg/m2 [facility] Oxygen saturation in 2023-01-03 19:38:00 99 /min University of Arterial blood by [employer] Pulse oximetry Branch Systolic blood 2022-12-06 19:07:00 114 mm[Hg] Univer sity of pressure [facility] Diastolic blood 2022-12-06 19:07:00 65 mm[Hg] Unive rsity of pressure [facility] Heart rate 2022-12-06 19:07:00 102 /min [facility] Body temperature 2022-12-06 19:07:00 37.06 Rhonda [facility] Respiratory rate 2022-12-06 19:07:00 18 /min Univ [facility] Body height 2022-12-06 19:07:00 162.6 cm [facility] Body weight 2022-12-06 19:07:00 78.835 kg [facility] BMI 2022-12-06 19:07:00 29.83 kg/m2 [facility] Oxygen saturation in 2022-12-06 19:07:00 98 /min University of Arterial blood by [employer] adriel Pulse oximetry Branch Systolic blood 2022-11-11 20:52:00 95 mm[Hg] Univer sity of pressure [facility] Diastolic blood 2022-11-11 20:52:00 52 mm[Hg] Unive rsity of pressure [facility] Heart rate 2022-11-11 20:52:00 97 /min [facility] Respiratory rate 2022-11-11 20:52:00 16 /min Univ ersity [facility] Body height 2022-11-11 20:52:00 162.6 cm [facility] Body weight 2022-11-11 20:52:00 79.379 kg [facility] BMI 2022-11-11 20:52:00 30.04 kg/m2 [facility] Oxygen saturation in 2022-11-11 20:52:00 96 /min University of Arterial blood by [place] [employer] [facility]riel Pulse oximetry Branch Systolic blood 2022-07-14 22:43:00 113 mm[Hg] Univer sity of pressure [facility] Diastolic blood 2022-07-14 22:43:00 69 mm[Hg] Unive rsity of pressure [facility] Heart rate 2022-07-14 22:43:00 78 /min [facility] Respiratory rate 2022-07-14 22:43:00 18 /min Univ ers[facility] Body height 2022-07-14 22:43:00 162.6 cm [facility] Body weight 2022-07-14 22:43:00 71.532 kg [facility] BMI 2022-07-14 22:43:00 27.07 kg/m2 [facility] Oxygen saturation in 2022-07-14 22:43:00 98 /min [facility] of Arterial blood by [place] [employer] [facility]riel Pulse oximetry Branch Systolic blood 2022-06-14 16:09:00 114 mm[Hg] Univer sity of pressure [facility] Diastolic blood 2022-06-14 16:09:00 73 mm[Hg] Unive rsity of pressure [facility] Heart rate 2022-06-14 16:09:00 104 /min [facility] Body temperature 2022-06-14 16:09:00 36.72 Rhonda [facility] Respiratory rate 2022-06-14 16:09:00 18 /min Univ ersity [facility] Body height 2022-06-14 16:09:00 160 cm [facility] Body weight 2022-06-14 16:09:00 71.124 kg [facility] BMI 2022-06-14 16:09:00 27.78 kg/m2 [facility] Systolic blood 2022-05-26 19:51:00 120 mm[Hg] Univer sity of pressure [facility] Diastolic blood 2022-05-26 19:51:00 72 mm[Hg] Unive rsity of pressure [facility] Heart rate 2022-05-26 19:51:00 73 /min [facility] Body temperature 2022-05-26 19:51:00 37.06 Rhonda [facility] Respiratory rate 2022-05-26 19:51:00 18 /min Univ [facility] Body height 2022-05-26 19:51:00 161 cm [facility] Body weight 2022-05-26 19:51:00 70.364 kg [facility] BMI 2022-05-26 19:51:00 27.15 kg/m2 [facility] Oxygen saturation in 2022-05-26 19:51:00 98 /min University of Arterial blood by [facility] Pulse oximetry Branch Systolic blood 2022-05-17 19:59:00 101 mm[Hg] Univer sity of pressure [facility] Diastolic blood 2022-05-17 19:59:00 66 mm[Hg] Unive rsity of pressure [facility] Heart rate 2022-05-17 19:59:00 90 /min [facility] Body temperature 2022-05-17 19:59:00 36.89 Rhonda [facility] Respiratory rate 2022-05-17 19:59:00 18 /min [facility] Body height 2022-05-17 19:59:00 160 cm [facility] Body weight 2022-05-17 19:59:00 70.761 kg [facility] BMI 2022-05-17 19:59:00 27.63 kg/m2 [facility] Systolic blood 2022-01-07 14:26:00 97 mm[Hg] Univer sity of pressure [facility] Diastolic blood 2022-01-07 14:26:00 63 mm[Hg] [facility] Heart rate 2022-01-07 14:26:00 73 /min [facility] Respiratory rate 2022-01-07 14:26:00 17 /min [facility] Body height 2022-01-07 14:26:00 160 cm [facility] Body weight 2022-01-07 14:26:00 65.454 kg [facility] BMI 2022-01-07 14:26:00 25.56 kg/m2 [facility] Oxygen saturation in 2022-01-07 14:26:00 96 /min [facility] Arterial blood by [facility] Pulse oximetry Branch Procedures Procedure Date / Time Performing Clinician Source Performed CBC WITH DIFF 2023-01-14 11:13:00 [facility] 2023-01-14 11:13:00 [facility] 2023-01-13 12:13:[address] [facility] SECTION 2023-01-13 12:13:[address] [facility] HIV 1/2 AG-AB WITH 2023-01-13 11:23:[facility] HIV 1/2 AG-AB WITH 2023-01-13 11:23:00 Mary Hamilton [facility] REFLEX [facility] CBC WITH DIFF 2023-01-13 11:18:00 Tyra [facility] HEPATITIS B SURFACE 2023-01-13 11:18:00 Hamilton Mary [facility] ANTIGEN [facility] Branch HB ABO GROUPING 2023-01-13 11:18:00 [facility] RHO (D) IMMUNE GLOBULIN 2023-01-13 11:18:00 Hamilton Mary [facility] ADC OR MARVIN ONLY - 2023-01-13 11:18:00 Hamilton Mary [facility] RPR Medical Branch CBC WITH DIFF 2023-01-13 11:18:00 Tyra [facility] HEPATITIS B SURFACE 2023-01-13 11:18:00 Hamilton Mary [facility] ANTIGEN [facility] HB ABO GROUPING 2023-01-13 11:18:[address] [facility] o f [facility] RHO (D) IMMUNE GLOBULIN 2023-01-13 11:18:00 Hamilton Mary [facility] ADC OR MARVIN ONLY - 2023-01-13 11:18:00 Hamilton Mary [facility] RPR [facility] DSU PRE-OP 2023-01-09 05:01:00 Doctor Unassigned, Keely [facility] POCT URINALYSIS W/O 2023-01-03 00:00:00 [place] Mary [facility] SPECIFIC [facility] POCT URINALYSIS W/O 2022-12-06 00:00:00 Hamilton Mary [facility] SPECIFIC GRAVITY [facility] SECOND AND THIRD 2022-11-18 21:17:00 Hamilton Mary [facility] TRIMESTER ULTRASOUND Medical [facility] ASSIGNMENT OF BENEFITS 2022-11-11 20:42:24 Doctor Unassigned, No [facility] POCT URINALYSIS W/O 2022-11-11 00:00:00 Hamilton Mary [facility] SPECIFIC [facility] PHYSICIAN ORDERS 2022-07-27 05:01:00 Doctor Unassigned, Keely [facility] POCT URINALYSIS W/O 2022-07-14 22:45:00 Jose Andrews [facility] SPECIFIC [facility] US OB TRANSVAGINAL 2022-06-14 17:09:39 AdumBetzaida [facility] 2022-06-14 06:01:00 Doctor Unassigned, Keely [facility] POCT URINALYSIS W/O 2022-06-14 00:00:00 Adum, Betzaida Squires [facility] SPECIFIC [facility] POCT TEST 2022-05-26 20:40:00 Bharti Crump [facility] POCT URINALYSIS 2022-05-26 20:04:00 Bharti Crump o f [facility] TOTAL BETA HCG ASSAY 2022-05-17 23:18:00 Adum, Betzaida Squries Univers [facility] POCT TEST 2022-05-17 00:00:00 Adum, Betzaida Squires [facility] POCT URINALYSIS W/O 2022-05-17 00:00:00 Adum, Betzaida Squires [facility] POCT TEST 2022-01-07 14:55:00 Honey Beltran [facility] Encounters Start End Encounter Admission Attending Care Care Encounter Source Date/Time Date/Time Type Type Clinicians Facility Department ID 2021-03-08 Outpatient [facility] [id number] [facility] 2021-03-07 Outpatient P [facility] [id number] [facility] 16:[facility] 2021-03-07 Outpatient P [facility] [id number] [facility] 16:[facility]:03 [facility] 2021-03-07 Emergency [facility] [id number] [facility] 16:31[facility]02 [facility] 2023-04-03 2023-04-03 Outpatient R TYRA HAMILTON [facility] [id number] Univers 11:00:00 11:00:00 [facility] 2023-03-16 2023-03-16 Outpatient R TYRA HAMILTON [facility] [id number] Univers 15:15:00 15:15:00 [facility] 2023-02-27 2023-02-27 Outpatient R ASIYA [facility] [id number] Univers 16:00:00 16:16:36 HENNY [facility] 2023-02-27 2023-02-27 Routine Asiya FLLLOYD [id number] Univers 16:00:00 16:16:36 Henny GUIDRY [id number] ity [facility] [id number] Fritz witt PROFESSIO [id number] [facility] 2023-02-01 2023-02-01 Telephone [place] Mary [facility] [id number] Univers 00:00:00 00:00:00 Cam [place] [id number] i ty of [id number] [id number] Mt dical [address] 2023-01-23 2023-01-23 Outpatient R HAMILTON MARY [facility] [id number] Univers 13:15:00 14:03:26 ity of [facility] 2023-01-23 2023-01-23 Routine [place] Mary [facility] [id number] Univers 13:15:00 14:03:26 Cam [place] [id number] ity [id number] [id number] [address] 2023-01-13 2023-01-15 Inpatient P HAMILTON MARY [facility] [id number] Univers 05:00:00 13:30:00 ity of [facility] 2023-01-13 2023-01-15 Hospital Hamilton Mary [facility] 1.2.840.114 [id number] Univers 05:00:00 13:30:00 Encounter Cam [place] 350.1.13.10 ity of [place] [id number] [facility] [address] [employer] 2023-01-13 2023-01-13 Surgery Hamilton Mary [facility] 1.2.902.457 [id number] Univers 07:15:00 08:49:00 Cam [place] 350.1.13.10 i ty of [place] 4.2.7.2.686 [facility] [id number] [facility] [address] [employer] 2023-01-12 2023-01-12 Outpatient R HAMILTON MARY [facility] [id number] Univers 13:00:00 13:50:[address] [facility] 2023-01-12 2023-01-12 Routine Hamilton Mary [facility] 1.2.491.859 [id number] Univers 13:00:00 13:50:58 Cam [place] 350.1.13.10 ity of [place] [id number] [address] 2023-01-11 2023-01-11 Outpatient R HAMILTON MARY [facility] [id number] Univers 15:30:00 15:30:00 ity of [facility] 2023-01-09 2023-01-09 Orders Doctor GISELE 1.2.840.114 [id number] Univers 00:00:00 00:00:00 Only Unassigned, JESSIE 350.1.13.10 ity of [place] [facility] 4.2.7.2.686 Radhames as [id number] [address] 2023-01-06 2023-01-06 Case [facility] 1.2.491.782 [id number] Univers 00:00:00 00:00:00 Management Cam [place] 350.1.13.10 ity of [place] [id number] [address] 2023-01-03 2023-01-03 Outpatient R HAMILTON MARY [facility] [id number] Univers 13:45:00 15:20:24 ity of [facility] 2023-01-03 2023-01-03 Routine [place] Mary [facility] 1.2.985.131 [id number] Univers 13:45:00 15:20:24 Cam [place] 350.1.13.10 ity of [place] [id number] [address] 2022-12-23 2022-12-23 Outpatient R HAMILTON MARY [facility] [id number] Univers 15:00:00 15:00:00 ity of [facility] 2022-12-09 2022-12-09 Roderick [facility] 1.2.463.460 [id number] Univers 00:00:00 00:00:00 Management Cam [place] 350.1.13.10 ity of [facility] 4.2.7.2.[place] [phone] Mt dical [address] 2022-12-06 2022-12-06 Outpatient R HAMILTON MARY [facility] [id number] Univers 14:00:00 14:37:23 ity of [facility] 2022-12-06 2022-12-06 Routine [facility] 1.2.535.942 [id number] Univers 14:00:00 14:37:23 Raad GUIDRY 350.1.13.10 ity of [place] [id number] Mt dical [address] 2022-12-06 2022-12-06 Telephone Tyra [facility] 1.2.840.114 [id number] Univers 00:00:00 00:00:00 Raad MANRIQUEZ 350.1.13.10 it y of PEDIATRIC 4.2.7.2.686 Te [facility] [id number] [address] 2022-11-25 2022-11-25 Outpatient R HAMILTON MARY [facility] [id number] Univers 13:15:00 13:15:00 ity of [facility] 2022-11-22 2022-11-22 Outpatient R [facility] [id number] Univers 08:00:00 08:00:00 ity of [facility] 2022-11-18 2022-11-18 Outpatient R LILIA PEDROZA [facility] [id number] Univers 15:00:00 16:16:25 LILIA PEDROZA ity of [facility] 2022-11-18 2022-11-18 Mix House Tender Ultrasound, [facility] 1.2 .840.114 [id number] Univers 15:00:00 16:16:25 Visit Lilia Pedroza [employer] 350.1.13.10 ity of REGIONAL 4.2.7.2.686 Radhames as MATERNAL [id number] Med ical & CHILD [address] [place] [address] 2022-11-17 2022-11-17 Telephone [facility] 1.2.840.114 [id number] Univers 00:00:00 00:00:00 Raad GUIDRY 350.1.13.10 i ty of [place].2.[place] [id number] Mt dical [address] 2022-11-16 2022-11-16 Patient Doctor GENET 1.2.840.114 [id number] Univers 00:00:00 00:00:00 Secure Msg Unassigned, BREA 350.1.13.10 ity of [place] [id number] [address] 2022-11-15 2022-11-15 Case [facility] 1.2.632.918 [id number] Univers 00:00:00 00:00:00 Management Cam [place] 350.1.13.10 ity of [place] [id number] [address] 2022-11-14 2022-11-14 Outpatient R HAMILTON MARY [facility] [id number] Univers 15:30:00 15:47:12 ity of [facility] 2022-11-14 2022-11-14 Mix House Tender Lab, Ang - Db [facility] 1.2.840.1 14 [id number] Univers 15:30:00 15:45:00 Visit Hamilton Mary Lymbix 350.1.13.10 ity of [facility] 4.2.7.2.686 Radhames as KACY?BLEA [phone] Mt angle [address] MEDICAL OFFICE [facility] 2022-11-11 2022-11-11 Outpatient R HAMILTON MARY [facility] [id number] Univers 15:00:00 16:24:30 ity of [facility] 2022-11-11 2022-11-11 Routine Hamilton Mary [facility] 1.2.840.114 10 [id number] Univers 15:00:00 16:24:30 Cam [place] 350.1.13.10 i ty of Visit [place] HE[place] [id number] [address] 2022-11-11 2022-11-11 Orders Doctor GISELE 1.2.840.114 [id number] Univers 00:00:00 00:00:00 Only Unassigned, JESSIE 350.1.13.10 ity of [place] [facility] 4.2.7.2.686 Radhames as [id number] [address] 2022-10-20 2022-10-20 Outpatient R CHET AMEZQUITA [facility] U [facility] [id number] Univers 16:15:00 16:15:00 BIA CHET ity of [facility] 2022-08-15 2022-08-15 [facility]phone [facility] 1.2.840.11 4 [id number] Univers 00:00:00 00:00:00 Jose MANRIQUEZ 350.1.13.10 it y of WOMEN'S 4.2.7.2.686 [facility] [id number] [address] 2022-08-10 2022-08-10 Outpatient R ALEJANDRA [facility] [id number] Univers 13:15:00 13:15:00 BETZAIDA ity of [facility] 2022-08-04 2022-08-04 Telephone [facility] 1.2.840.11 4 [id number] Univers 00:00:00 00:00:00 Jose MANRIQUEZ 350.1.13.10 it y [place] [facility] [id number] [address] 2022-08-02 2022-08-02 Telephone [facility] 1.2.840.11 4 [id number] Univers 00:00:00 00:00:00 Sadiesophie MANRIQUEZ 350.1.13.10 it y [place] [id number] [address] 2022-07-27 2022-07-27 Orders Doctor JAQUEZ 1.2.840.114 [id number] Univers 00:00:00 00:00:00 Only Unassigned, JESSIE 350.1.13.10 ity of [place] [facility] 4.2.7.2.686 Radhames as [id number] [address] 2022-07-25 2022-07-25 Mix House Tender Lab, [facility] 1.2.840.1 14 [id number] Univers 08:30:00 10:17:59 Visit Adum, Betzaida Squires HEALTH 350.1.13.10 ity of [facility] 4.2.7.2.686 Radhames as KACY?BLEA [id number] [address] OFFICE [facility] 2022-07-25 2022-07-25 Outpatient R ADUM, [facility] [id number] Univers 08:30:00 08:30:[address] [facility] 2022-07-25 2022-07-25 Letter Lab, [facility] 1.2.840.114 [id number] Univers 00:00:00 00:00:00 (Out) Db HEALTH 350.1.13.10 it y of [place] 4.2.7.2.686 Radhames as KACY?BLEA [id number] [address] OFFICE [facility] 2022-07-14 2022-07-14 Outpatient R ALFREDOKALPANA JOSE [facility] B [id number] Univers 16:30:00 17:04:21 ALFREDOJOSE ACUNA [facility] 2022-07-14 2022-07-14 Routine [facility] 1.2.840.114 [id number] Univers 16:30:00 17:04:21 Jose MANRIQUEZ 350.1.13.10 i ty of [place] [id number] [address] 2022-07-12 2022-07-12 Outpatient R ADUM, [facility] [id number] Univers 11:00:00 11:00:[address] [facility] 2022-06-21 2022-06-21 Outpatient R [facility] [id number] Univers 09:00:00 09:00:[address] [facility] 2022-06-14 2022-06-14 Outpatient R ADUM, [facility] [id number] Univers 10:00:00 11:07:57 BETZAIDA [facility] 2022-06-14 2022-06-14 Routine Adum, [facility] 1.2.954.453 [id number] Univers 10:00:00 11:07:57 Betzaida Tavia MANRIQUEZ 350.1.13.10 ity of [place] [id number] [facility] [address] 2022-06-14 2022-06-14 Orders Doctor GISELE 1.2.840.114 [id number] Univers 00:00:00 00:00:00 Only Unassigned, JESSIE 350.1.13.10 ity of [place] [facility] 4.2.7.2.686 Radhames as [id number] [facility] [address] 2022-06-07 2022-06-07 Telephone Theron [facility] 1.2.840.114 [id number] Univers 00:00:00 00:00:00 Rania HEALTH 350.1.13.10 it y of [facility] 4.2.7.2.686 Radhames as KACY?BLEA [id number] [address] MEDICAL OFFICE BUILDING 2022-06-01 2022-06-01 [facility] [id number] Univers 15:30:00 15:30:[address] [facility] 2022-05-26 2022-05-26 Outpatient R THERON [facility] [id number] Univers 14:00:00 14:38:[address] [facility] 2022-05-26 2022-05-26 Urgent Bharti Crump [facility] 1.2.840.114 [id number] Univers 14:00:00 14:38:38 Care Unknown, Attending HEALTH 350.1.13.10 ity of [facility] 4.2.7.2.686 Radhames as KACY?BLEA [id number] [address] MEDICAL OFFICE BUILDING 2022-05-26 2022-05-26 Letter Theron [facility] 1.2.840.114 [id number] Univers 00:00:00 00:00:00 (Out) Rania HEALTH 350.1.13.10 it y of [place] 4.2.7.2.686 Radhames as KACY?BLEA [id number] Mt angle RIVERA [address] MEDICAL OFFICE [facility] 2022-05-19 2022-05-19 Outpatient R [facility] [id number] Univers 16:00:00 16:00:[address] [facility] 2022-05-17 2022-05-17 Mix House Tender Lab, Ang - Db [facility] 1.2.840.1 14 [id number] Univers 16:45:00 17:22:33 Visit AdYaima maeian Tavia [facility] 350.1.13.10 ity of [place] 4.2.7.2.686 Radhames as KACY?BLEA 483.3550341 Mt angle RIVERA [address] [facility] OFFICE [facility] 2022-05-17 2022-05-17 Outpatient R ALEJANDRA [facility] [id number] Univers 16:45:00 16:45:00 [facility] 2022-05-17 [facility] 1.2.278.221 [id number] Univers 14:00:00 14:49:45 Betzaida Tavia [place] 350.1.13.10 ity of Visit WOMEN'S 4.2.7.2.686 [place] [facility] [id number] [address] 2022-05-05 2022-05-05 Outpatient R MERCEDES, [facility] [id number] Univers 18:00:00 18:00:[address] [facility] 2022-01-07 2022-01-07 Mix House Tender Lab, Joe - Pierce [facility] 1.2.840.1 14 [id number] Univers 10:00:00 10:07:28 Visit Honey Beltran 350.1.13.10 ity [facility] 4.2.7.2.686 Radhames as KACY?BLEA [id number] Mt angle MARIE [address] [place] [address] [address] [facility] 2022-01-07 2022-01-07 Outpatient R DEVIN [facility] [id number] Univers 10:00:00 10:00:[address] [facility] 2022-01-07 2022-01-07 Urgent Devin [facility] 1.2.840.114 [id number] Univers 09:20:00 09:40:00 Care [facility] 350.1.13.10 it y of [place] 4.2.7.2.686 Radhames as KACY?BLEA [id number] Mt angle RIVERA [address] [place] [address] MEDICAL OFFICE BUILDING 2022-01-06 2022-01-06 [facility] 1.2.039.783 [id number] Univers 00:00:00 00:00:00 Niraj C [employer] 350.1.13.10 ity of REGIONAL 4.2.7.2.686 Radhames as MATERNAL [id number] Med ical & CHILD [address] [place] [address] 2021-08-11 2021-08-11 Outpatient R AKINSIPE, [facility] [id number] Univers 10:00:00 10:00:00 NIRAJ kwon o [facility] 2021-08-11 2021-08-11 Outpatient R AKINSIPE, [facility] [id number] Univers 10:00:00 10:00:00 NIRAJ kwon o [facility] 2021-08-09 2021-08-[address] [facility] 1.2.840.114 [id number] Univers 00:00:00 00:00:00 Niraj C [employer] 350.1.13.10 ity of REGIONAL 4.2.7.2.686 Radhames as MATERNAL [id number] [facility] & CHILD [address] [place] [address] 2021-08-09 2021-08-[address] [facility] 1.2.840.114 [id number] Univers 00:00:00 00:00:00 Niraj C [employer] 350.1.13.10 ity of REGIONAL 4.2.7.2.686 Radhames as MATERNAL [id number] [facility] & CHILD [address] [place] [address] 2021-08-09 2021-08-[address] [facility] 1.2.840.114 [id number] Univers 00:00:00 00:00:00 Niraj C [employer] 350.1.13.10 ity of REGIONAL 4.2.7.2.686 Radhames as MATERNAL [id number] [facility] ical & CHILD [address] [place] [address] 2021-08-09 2021-08-[address] [facility] 1.2.840.114 [id number] Univers 00:00:00 00:00:00 Niraj C [employer] 350.1.13.10 ity of [facility] 4.2.7.2.686 Radhames as MATERNAL [id number] [facility] ical & CHILD [address] [place] [address] 2021-08-09 2021-08-[address] [facility] 1.2.840.114 [id number] Univers 00:00:00 00:00:00 Niraj C [employer] 350.1.13.10 ity of [facility] 4.2.7.2.686 Radhames as MATERNAL [id number] [facility] & CHILD [address] [place] [address] 2021-08-05 2021-08-[address] [facility] 1.2.147.587 [id number] Univers 13:15:00 14:26:58 Visit Niraj C [employer] 350.1.13.10 ity of [facility] 4.2.7.2.686 Radhames as MATERNAL [id number] [facility] & CHILD [address] [place] [address] 2021-08-05 2021-08-05 Outpatient R AKINSIPE, [facility] [id number] Univers 13:15:00 14:26:58 NIRAJ ity o [facility] 2021-08-05 2021-08-05 Outpatient R AKINSIPE, [facility] [id number] Univers 13:15:00 14:26:58 NIRAJ ity o [facility] 2021-08-05 2021-08-05 Outpatient R AKINSIPE, [facility] [id number] Univers 13:15:00 13:15:00 NIRAJ ity o [facility] 2021-08-05 2021-08-05 Orders Doctor JAQUEZ 1.2.840.114 [id number] Univers 00:00:00 00:00:00 Only Unassigned, JESSIE 350.1.13.10 ity of [place] [facility] 4.2.7.2.686 Radhames as [id number] [address] 2021-06-28 2021-06-28 Outpatient R AKINSIPE, [facility] 08616 [id number] Univers 09:30:00 09:30:00 NIRAJ gonzales marion [facility] 2021-02-15 2021-02-15 Telephone [facility] 1.2.840.114 [id number] Univers 00:00:00 00:00:00 Juan Diego Montes [employer] T[employer]ER 350.1.13.10 it y of [facility] 4.2.7.2.686 Radhames as MATERNAL [id number] [facility] & [address] 2021-02-08 2021-02-08 [facility] [id number] Univers 10:00:00 10:00:[address] [facility] 2021-01-15 2021-01-15 Outpatient R [facility] [id number] Univers 15:30:00 15:30:00 NIRAJ schultz [facility] 2021-01-13 2021-01-[address] [facility] 1.2.840.114 [id number] Univers 00:00:00 00:00:00 Niraj Crowe [employer] 350.1.13.10 ity of [facility] 4.2.7.2.686 Radhames as MATERNAL [id number] [address] 2021-01-02 2021-01-05 [facility] Perez Kusum GISELE 1.2.840.1 14 [id number] Univers 07:10:00 12:20:00 Encounter Alexei Ch 350.1.13.10 ity of [facility] 4.2.7.2.[id number] [facility] adriel [address] 2021-01-05 2021-01-05 1.2.840.1 1.2.840.114 87 [id number] Univers 00:00:00 00:00:00 Encounter 16406.1.1 350.1.13.10 ity of 3[place]104.2.[place][id number] [address] [employer] 2021-01-05 2021-01-05 1.2.840.1 1.2.840.114 87 [id number] Univers 00:00:00 00:00:00 Encounter 92275.1.1 350.1.13.10 ity of 3.104.2.7 [place]2.696 [place] .[id number] [facility] 2021-01-03 2021-01-03 Anesthesia DelgadoGISELE 1.2.840.114 [id number] Univers 20:01:25 20:01:25 Event Reuben JESSIE 350.1.13.10 it y of HOSPITAL 4.2.7.2.686 Radhames as [id number] [facility] [address] [employer] 2021-01-02 2021-01-02 Anesthesia GinaReuben sears 1.2. 840.114 [id number] Univers 20:02:00 23:06:00 Event Mari Ramosi JESSIE 350.1.13.1 0 ity of HOSPITAL 4.2.7.2.686 Radhames as [id number] [facility] [address] [employer] 2021-01-02 2021-01-02 Surgery Alexei Ch 1.2.799.104 [id number] Univers 09:45:00 11:43:00 JESSIE 350.1.13.10 it y of HOSPITAL 4.2.7.2.686 Radhames as [id number] [facility] [address] [employer] 2020-12-30 2020-12-30 Laboratory Lab, [facility] 1.2.840. 114 [id number] Univers 14:04:00 14:04:56 Only Niraj Whittington [employer] 350.1.13. 10 ity of [facility] 4.2.7.2.686 Radhames as MATERNAL [id number] [facility] ical & CHILD [address] [place] [address] 2020-12-30 2020-12-30 Laboratory [facility], [facility] 1.2.840. 114 [id number] Univers 14:04:00 14:04:56 Only Alex Whittingtonilola C [employer] 350.1.13. 10 ity of [facility] 4.2.7.2.686 Radhames as MATERNAL 152.1919352 Med ical & CHILD [address] [place] [address] 2020-12-30 2020-12-30 Outpatient R AKINSIPE, [facility] [id number] Univers 13:30:00 13:30:00 NIRAJ ity o f [facility] 2020-12-29 2020-12-29 [facility] 1.2.840.114 [id number] Univers 00:00:00 00:00:00 Niraj C [employer] 350.1.13.10 ity of REGIONAL 4.2.7.2.686 Radhames as MATERNAL [id number] [facility] & [address] 2020-12-29 2020-12-29 Telephone [facility] 1.2.840.114 [id number] Univers 00:00:00 00:00:00 Niraj C [employer] 350.1.13.10 ity of REGIONAL 4.2.7.2.686 Radhames as MATERNAL 114.1540174 [facility] & [address] 2020-12-28 2020-12-28 Routine Akinpe, [facility] 1.2.725.967 [id number] Univers 15:31:36 15:46:36 Niraj C [employer] 350.1.13.10 ity of Visit REGIONAL 4.2.7.2.686 Radhames as MATERNAL 545.2577956 [facility] & [address] 2020-12-28 2020-12-28 Outpatient R AKINSIPE, [facility] [id number] Univers 15:45:00 15:45:00 NIRAJ ity o f [facility] 2020-12-15 2020-12-15 Outpatient R AKINSIPE, [facility] [id number] Univers 14:00:00 14:00:00 NIRAJ ity o f [facility] 2020-12-01 2020-12-01 Routine Akinsipe, [facility] 1.2.817.455 [id number] Univers 08:44:52 09:19:39 Niraj C [employer] 350.1.13.10 ity of Visit REGIONAL 4.2.7.2.686 Radhames as MATERNAL [id number] [facility] & [address] 2020-12-01 2020-12-01 Outpatient R AKINSIPE, [facility] [id number] Univers 09:15:00 09:15:00 NIRAJ ity o f [facility] 2020-11-03 2020-11-03 Outpatient R AKINSIPE, [facility] [id number] Univers 15:00:00 15:00:00 NIRAJ ity o [facility] 2020-10-20 2020-10-20 Routine Akinsipe, [facility] 1.2.929.378 [id number] Univers 13:00:18 13:53:04 Niraj C [employer] 350.1.13.10 ity of Visit REGIONAL 4.2.7.2.686 Radhames as MATERNAL [id number] [facility] & [address] 2020-10-20 2020-10-20 Outpatient R AKINSIPE, [facility] [id number] Univers 12:45:00 12:45:00 NIRAJ ity o [facility] 2020-10-06 2020-10-06 Routine Akinsipe, [facility] 1.2.060.627 [id number] Univers 12:45:11 13:34:11 Niraj C [employer] 350.1.13.10 ity of Visit REGIONAL 4.2.7.2.686 Radhames as MATERNAL [id number] [address] 2020-10-06 2020-10-06 Outpatient R AKINSIPE, [facility] [id number] Univers 12:45:00 12:45:00 NIRAJ ity o [facility] 2020-09-24 2020-09-24 Outpatient R AKINSIPE, [facility] [id number] Univers 13:00:00 13:00:00 NIRAJ ity o [facility] 2020-09-16 2020-09-16 Telephone Akinsipe, [facility] 1.2.840.114 [id number] Univers 00:00:00 00:00:00 Niraj C [employer] 350.1.13.10 ity of REGIONAL 4.2.7.2.686 Radhames as MATERNAL [phone] [facility] & CHILD [address] [place] [address] 2020-09-07 2020-09-07 [facility] [id number] [id number] Univers 15:32:12 16:02:18 Niraj Crowe [employer] 350.1.13.10 ity of Visit [facility] 4.2.7.2.686 Radhames as MATERNAL [phone] [facility] CHILD [address] [place] [address] 2020-09-07 2020-09-07 [facility] [id number] Univers 15:00:00 15:00:00 NIRAJ schultz [facility] 2020-09-05 2020-09-05 [facility] 1.2.840.114 [id number] Univers 13:52:00 15:00:00 Encounter Betzaida Guidry 350.1.13.10 ity of [place] 4.2.7.2.686 [facility] [phone] [facility] [address] [employer] 2020-09-05 2020-09-05 Orders Doctor GISELE 1.2.840.114 [id number] Univers 00:00:00 00:00:00 Only Unassigned, JESSIE 350.1.13.10 ity of [place] [facility] 4.2.7.2.686 Radhames as [phone] [facility] [address] [employer] 2020-09-01 2020-09-01 [facility] [id number] Univers 14:15:00 14:15:00 NIRAJ schultz [facility] 2020-08-18 2020-08-18 Abstract [facility] 1.2.840.114 [id number] Univers 00:00:00 00:00:00 Niraj Crowe [employer] 350.1.13.10 ity of [facility] 4.2.7.2.686 Radhames as MATERNAL [phone] [facility] & CHILD [address] [place] [address] 2020-08-17 2020-08-17 [employer] Ultrasound, Robin [facility] 1.2 .840.114 [id number] Univers 13:00:06 13:41:25 Visit Dylon Cedillo Valarie [employer] 350.1.13.10 ity of REGIONAL 4.2.7.2.686 Radhames as MATERNAL [phone] [facility] ical & CHILD [address] [facility] 2020-08-17 2020-08-17 Outpatient P [facility] [id number] Univers 13:00:00 13:00:[address] [facility] 2020-08-10 2020-08-10 Outpatient P [facility] [id number] Univers 14:00:00 14:00:00 ity [facility] 2020-08-04 2020-08-04 [facility]ine [facility] [id number] Univers 14:04:24 14:19:24 Niraj Crowe [employer] 350.1.13.10 ity of Visit REGIONAL 4.2.7.2.686 Radhames as MATERNAL [phone] [facility] & [address] 2020-08-04 2020-08-04 [facility] [id number] Univers 14:00:00 14:00:00 NIRAJ ity o f [facility] 2020-07-28 2020-07-28 Patient Yadiel [facility] 1.2.840.114 [id number] Univers 00:00:00 00:00:00 Outreach [facility] 350.1.13.10 i ty of [facility] 4.2.7.2.[place] [id number] [address] 2020-07-22 2020-07-22 Abstract [facility] 1.2.840.114 [id number] Univers 00:00:00 00:00:00 Niraj C [employer] 350.1.13.10 ity of REGIONAL 4.2.7.2.686 Radhames as MATERNAL [phone] [facility] & CHILD [address] [place] [address] 2020-07-21 2020-07-21 Mix House Tender 1, [facility] Us Room UNIVERSIT 1 .2.840.114 [id number] Univers 14:12:36 15:05:25 Visit Regan Powell [facility] 350.1.13.10 ity of CL[place] [id number] [address] 2020-07-21 2020-07-21 Outpatient P [facility] [id number] Univers 14:00:00 14:00:00 ity of [facility] 2020-07-07 2020-07-07 Outpatient R NELSY [facility] [id number] Univers 12:45:00 12:45:00 NIRAJ ity o [facility] 2020-06-12 2020-06-12 Telephone [facility] 1.2.840.114 [id number] Univers 00:00:00 00:00:00 Niraj Crowe [employer] 350.1.13.10 ity of REGIONAL 4.2.7.2.686 Radhames as MATERNAL [phone] [facility] ical & CHILD [address] [place] [address] 2020-06-09 2020-06-09 Initial [facility] 1.2.932.597 [id number] Univers 13:11:19 14:18:24 Niraj Crowe [employer] 350.1.13.10 ity of Visit REGIONAL 4.2.7.2.686 Radhames as MATERNAL [phone] [facility] ical & CHILD [address] [place] [address] 2020-06-09 2020-06-09 [facility] [id number] Univers 13:30:00 13:30:00 NIRAJ ity o [facility] 2020-06-09 2020-06-09 Outpatient R NELSY [facility] [id number] Univers 12:45:00 12:45:00 NIRAJ ity o [facility] 2020-06-09 2020-06-09 Outpatient R NELSY, [facility] [id number] Univers 12:45:00 12:45:00 NIRAJ ity o [facility] 2020-06-09 2020-06-09 Orders Doctor JAQUEZ 1.2.840.114 [id number] Univers 00:00:00 00:00:00 Only Unassigned, JESSIE 350.1.13.10 ity of [place] [facility] 4.2.7.2.686 Radhames as [id number] [address] 2020-06-03 2020-06-03 Outpatient R [facility] [id number] Univers 13:00:00 13:00:00 ity of [facility] 2020-06-01 2020-06-01 Outpatient R NELSY, [facility] [id number] Univers 08:00:00 08:00:00 NIRAJ schultz [facility] 2020-03-04 2020-03-[address] [facility] 1.2.434.649 [id number] Univers 09:04:08 09:34:08 Visit Niraj Crowe [employer] 350.1.13.10 ity of [place] [address].7.2.686 Radhames as MATERNAL [phone] [facility] & CHILD [address] [place] [address] 2020-03-04 2020-03-04 [facility] [id number] Univers 09:15:00 09:15:00 NIRAJ schultz [facility] 2020-03-04 2020-03-04 Orders Doctor GISELE 1.2.840.114 [id number] Univers 00:00:00 00:00:00 Only Unassigned, JESSIE 350.1.13.10 ity of [place] [facility] 4.2.7.2.686 Radhames as [id number] [address] 2020-02-25 2020-02-25 [facility] 1.2.840.114 [id number] Univers 00:00:00 00:00:00 Niraj C [employer] 350.1.13.10 ity of [facility] 4.2.7.2.686 Radhames as MATERNAL [id number] [facility] & CHILD [address] [place] [address] 2020-02-24 2020-02-24 [facility]phone [facility] 1.2.840.114 [id number] Univers 00:00:00 00:00:00 Niraj C [employer] 350.1.13.10 ity of [facility] 4.2.7.2.686 Radhames as MATERNAL [id number] [facility] & CHILD [address] [place] [address] 2020-02-18 2020-02-18 Outpatient R AKINSIPE, [facility] [id number] Univers 13:30:00 13:30:00 NIRAJ schultz [facility] 2020-02-18 2020-02-18 Outpatient R NELSY [facility] [id number] Univers 13:30:00 13:30:00 NIRAJ schultz [facility] 2020-02-14 2020-02-14 Telephone [facility] 1.2.840.114 [id number] Univers 00:00:00 00:00:00 Niraj Sebastien [employer] 350.1.13.10 ity of [facility] 4.2.7.2.686 Radhames as MATERNAL [id number] [facility] & CHILD [address] [place] [address] 2020-02-13 2020-02-13 Office [facility] 1.2.564.978 [id number] Univers 13:17:35 14:12:54 Visit Niraj C [employer] 350.1.13.10 ity of [facility] 4.2.7.2.686 Radhames as MATERNAL [phone] [facility] & [address] 2020-02-13 2020-02-13 Outpatient R NELSY [facility] [id number] Univers 11:00:00 11:00:00 NIRAJ schultz [facility] 2020-02-13 2020-02-13 Orders Doctor GISELE 1.2.840.114 [id number] Univers 00:00:00 00:00:00 Only Unassigned, JESSIE 350.1.13.10 ity of [place] [facility] 4.2.7.2.686 Radhames as [id number] [address] 2019-09-09 2019-09-09 Outpatient R HAMILTON MARY [facility] [id number] Univers 13:30:00 13:30:[address] [facility] Results Test Description Test Time Test Comments Results Result Comments Source CBC with Differential 2023-01-14 11:37:47 Test Item Value Reference Range Interpretation Comme nts WBC (test code = 6690-2) 7.35 See_Comment [A utomated message] The system which ge nerated this result transmit amanda reference range: 4.30 - 1 1.10 10*3/?L. The reference r allegra was not used to interpr et this result as normal/abnor mal. RBC (test code = 789-8) 3.81 See_Comment L [Au tomated message] The system which Sirigen nerated this result transmit amanda reference range: 3.93 - 5 .25 10*6/?L. The reference r allegra was not used to interpr et this result as normal/abnor mal. HGB (test code = 718-7) 9.0 g/dL 11.6-15.0 L HCT (test code = 4544-3) 29.8 % 35.7-45.2 L MCV (test code = 787-2) 78.2 fL 80.6-95.5 L MCH (test code = 785-6) 23.6 pg 25.9-32.8 L MCHC (test code = 786-4) 30.2 g/dL 31.6-35.1 L RDW-SD (test code = 98168-3) 47.0 fL 39.0-49.9 RDW-CV (test code = 788-0) 16.9 % 12.0-15.5 H PLT (test code = 777-3) 194 See_Comment [Au tomated message] The system which Sirigen nerated this result transmit amanda reference range: 166 - 35 8 10*3/?L. The reference range was not used to interpret th is result as normal/abnormal . MPV (test code = 30146-2) 12.2 fL 9.5-12.9 NRBC/100 WBC (test code = 0.0 See_Comment [ Automated message] The [id number]) system which Sirigen nerated this result transmit amanda reference range: 0.0 - 10 .0 /100 WBCs. The reference r allegra was not used to interpr et this result as normal/abnor mal. NRBC x10^3 (test code = See_Comment [Au tomated message] The [id number]) system which Sirigen nerated this result transmit amanda reference range: 10*3/?L. The reference range was not u sed to interpret this result as normal/abnormal . GRAN MAT (NEUT) % (test code 74.4 % = 770-8) IMM GRAN % (test code = 0.50 % 8374550889) LYMPH % (test code = 736-9) 16.2 % MONO % (test code = 5905-5) 6.9 % EOS % (test code = 713-8) 1.5 % BASO % (test code = 706-2) 0.5 % GRAN MAT x10^3(ANC) (test 5.46 10*3/uL 1.88-7.09 code = 4322466143) IMM GRAN x10^3 (test code = 0.04 10*3/uL 0.00-0.06 1958987965) LYMPH x10^3 (test code = 1.19 10*3/uL 1.32-3.29 L 731-0) MONO x10^3 (test code = 0.51 10*3/uL 0.33-0.92 742-7) EOS x10^3 (test code = 0.11 10*3/uL 0.03-0.39 711-2) BASO x10^3 (test code = 0.04 10*3/uL 0.01-0.07 704-7) Lab Interpretation (test Abnormal code = 24941-9) [facility] with [id number] 11:37:47 Test Item Value Reference Range Interpretation Comments WBC (test code = 7.35 See_Comment [Automated 6490-2) message] The sy stem which generated this result transmitted reference range : 4.30 - 11.10 10*3/?L. The reference range was not used to interpret this result as normal/abnormal . RBC (test code = 3.81 See_Comment L [Automated 089-8) message] The sy stem which generated this result transmitted reference range : 3.93 - 5.25 10*6/?L. The reference range was not used to interpret this result as normal/abnormal . HGB (test code = 9.0 g/dL 11.6-15.0 L 718-7) HCT (test code = 29.8 % 35.7-45.2 L 4544-3) MCV (test code = 78.2 fL 80.6-95.5 L 787-2) MCH (test code = 23.6 pg 25.9-32.8 L 785-6) MCHC (test code = 30.2 g/dL 31.6-35.1 L 786-4) RDW-SD (test code = 47.0 fL 39.0-49.9 76191-2) RDW-CV (test code = 16.9 % 12.0-15.5 H 788-0) PLT (test code = 194 See_Comment [Automated 777-3) message] The sy stem which generated this result transmitted reference range : 166 - 358 10*3/ ?L. The reference r allegra was not used to interpret this result as normal/abnormal . MPV (test code = 12.2 fL 9.5-12.9 83242-1) NRBC/100 WBC (test 0.0 See_Comment [Automat ed code = 1093361257) message] The system which generated this result transmitted reference range : 0.0 - 10.0 /100 WBCs. The refer ence range was not u sed to interpret th is result as normal/abnormal . NRBC x10^3 (test code See_Comment [Auto mated = 7363690204) message] The s ystem which generated this result transmitted reference range : 10*3/?L. The reference range was not used to interpret this result as normal/abnormal . GRAN MAT (NEUT) % 74.4 % (test code = 770-8) IMM GRAN % (test code 0.50 % = 9052334246) LYMPH % (test code = 16.2 % 736-9) MONO % (test code = 6.9 % 5905-5) EOS % (test code = 1.5 % 713-8) BASO % (test code = 0.5 % 706-2) GRAN MAT x10^3(ANC) 5.46 10*3/uL 1.88-7.09 (test code = 3708492984) IMM GRAN x10^3 (test 0.04 10*3/uL 0.00-0.06 code = 8937549028) LYMPH x10^3 (test code 1.19 10*3/uL 1.32-3.29 L = 731-0) MONO x10^3 (test code 0.51 10*3/uL 0.33-0.92 = 742-7) EOS x10^3 (test code = 0.11 10*3/uL 0.03-0.39 711-2) BASO x10^3 (test code 0.04 10*3/uL 0.01-0.07 = 704-7) Lab Interpretation Abnormal (test code = 81328-8) [facility] OR [place] ONLY - [id number] 06:11:24 Test Item Value Reference Range Interpretation Comments RPR (Qualitative) (test code = Nonreactive Nonreactive 74094-2) Lab Interpretation (test code = Normal 50352-2) [facility] OR [place] ONLY - [id number] 06:11:24 Test Item Value Reference Range Interpretation Comments RPR (Qualitative) (test code = Nonreactive Nonreactive 74785-3) Lab Interpretation (test code = Normal 23201-5) [facility] (D) IMMUNE [id number] 18:03:25 Test Item Value Reference Range Interpretation Comments RHIG CANDIDATE? No- see comment Patient i s not a (test code = candidate for R hIg- 5188) Patient is Rh Positive.Perfor med at [facility] Laboratory [facility] Blood [address] [place], [place] [address]Toll Free: [phone] A No. [id number] [facility] (D) IMMUNE [id number] 18:03:25 Test Item Value Reference Range Interpretation Comments RHIG CANDIDATE? No- see comment Patient i s not a (test code = candidate for R hIg- 5188) Patient is Rh Positive.Perfor med at [facility] Laboratory [facility] Blood [address]ch[address] [place], [place] [address]Toll Free: [phone] A No. [id number] [facility] B Surface [id number] 16:11:30 Test Item Value Reference Range Interpretation Comments HBsAg Semi-Quantitative (test code = 0.06 Negative 5195-3) [facility] B Surface [id number] 16:11:30 Test Item Value Reference Range Interpretation Comments HBsAg Semi-Quantitative (test code = 0.06 Negative 5-3) [facility] 1/2 AG-AB WITH [id number] 13:52:28 Test Item Value Reference Range Interpretation Comments HIV 0.08 Negative Semi-quantitative (test code = 06184-4) VITALIY (test code = Non-reactive for HIV-1 VITALIY) antigen and HIV-1/HIV-2 antibodies. ?No laboratory evidence of HIV infection. ?Repeat in 2-4 weeks if acute HIV infection is suspected. [facility] 1/2 AG-AB WITH [id number] 13:52:28 Test Item Value Reference Range Interpretation Comments HIV 0.08 Negative Semi-quantitative (test code = 71730-0) VITALIY (test code = Non-reactive for HIV-1 VITALIY) antigen and HIV-1/HIV-2 antibodies. ?No laboratory evidence of HIV infection. ?Repeat in 2-4 weeks if acute HIV infection is suspected. [facility] with [id number] 11:44:09 Test Item Value Reference Range Interpretation Comments WBC (test code = 6.50 See_Comment [Automated 6690-2) message] The sy stem which generated this result transmitted reference range : 4.30 - 11.10 10*3/?L. The reference range was not used to interpret this result as normal/abnormal . RBC (test code = 3.87 See_Comment L [Automated 789-8) message] The sy stem which generated this result transmitted reference range : 3.93 - 5.25 10*6/?L. The reference range was not used to interpret this result as normal/abnormal . HGB (test code = 9.0 g/dL 11.6-15.0 L 718-7) HCT (test code = 29.8 % 35.7-45.2 L 4544-3) MCV (test code = 77.0 fL 80.6-95.5 L 787-2) MCH (test code = 23.3 pg 25.9-32.8 L 785-6) MCHC (test code = 30.2 g/dL 31.6-35.1 L 786-4) RDW-SD (test code = 44.9 fL 39.0-49.9 25686-7) RDW-CV (test code = 16.5 % 12.0-15.5 H 788-0) PLT (test code = 215 See_Comment [Automated 777-3) message] The sy stem which generated this result transmitted reference range : 166 - 358 10*3/ ?L. The reference r allegra was not used to interpret this result as normal/abnormal . MPV (test code = 11.6 fL 9.5-12.9 04156-9) NRBC/100 WBC (test 0.0 See_Comment [Automat ed code = 9148948155) message] The system which generated this result transmitted reference range : 0.0 - 10.0 /100 WBCs. The refer ence range was not u sed to interpret th is result as normal/abnormal . NRBC x10^3 (test code See_Comment [Auto mated = 8685934788) message] The s ystem which generated this result transmitted reference range : 10*3/?L. The reference range was not used to interpret this result as normal/abnormal . GRAN MAT (NEUT) % 66.9 % (test code = 770-8) IMM GRAN % (test code 0.80 % = 2508244569) LYMPH % (test code = 23.5 % 736-9) MONO % (test code = 6.0 % 5905-5) EOS % (test code = 2.0 % 713-8) BASO % (test code = 0.8 % 706-2) GRAN MAT x10^3(ANC) 4.35 10*3/uL 1.88-7.09 (test code = 7216394753) IMM GRAN x10^3 (test 0.05 10*3/uL 0.00-0.06 code = 7512698084) LYMPH x10^3 (test code 1.53 10*3/uL 1.32-3.29 = 731-0) MONO x10^3 (test code 0.39 10*3/uL 0.33-0.92 = 742-7) EOS x10^3 (test code = 0.13 10*3/uL 0.03-0.39 711-2) BASO x10^3 (test code 0.05 10*3/uL 0.01-0.07 = 704-7) Lab Interpretation Abnormal (test code = 67430-0) [facility] with [id number] 11:44:09 Test Item Value Reference Range Interpretation Comments WBC (test code = 6.50 See_Comment [Automated 6690-2) message] The sy stem which generated this result transmitted reference range : 4.30 - 11.10 10*3/?L. The reference range was not used to interpret this result as normal/abnormal . RBC (test code = 3.87 See_Comment L [Automated 789-8) message] The sy stem which generated this result transmitted reference range : 3.93 - 5.25 10*6/?L. The reference range was not used to interpret this result as normal/abnormal . HGB (test code = 9.0 g/dL 11.6-15.0 L 718-7) HCT (test code = 29.8 % 35.7-45.2 L 4544-3) MCV (test code = 77.0 fL 80.6-95.5 L 787-2) MCH (test code = 23.3 pg 25.9-32.8 L 785-6) MCHC (test code = 30.2 g/dL 31.6-35.1 L 786-4) RDW-SD (test code = 44.9 fL 39.0-49.9 71674-2) RDW-CV (test code = 16.5 % 12.0-15.5 H 788-0) PLT (test code = 215 See_Comment [Automated 777-3) message] The sy stem which generated this result transmitted reference range : 166 - 358 10*3/ ?L. The reference r allegra was not used to interpret this result as normal/abnormal . MPV (test code = 11.6 fL 9.5-12.9 22994-8) NRBC/100 WBC (test 0.0 See_Comment [Automat ed code = 6768111289) message] The system which generated this result transmitted reference range : 0.0 - 10.0 /100 WBCs. The refer ence range was not u sed to interpret th is result as normal/abnormal . NRBC x10^3 (test code See_Comment [Auto mated = 5217525123) message] The s ystem which generated this result transmitted reference range : 10*3/?L. The reference range was not used to interpret this result as normal/abnormal . GRAN MAT (NEUT) % 66.9 % (test code = 770-8) IMM GRAN % (test code 0.80 % = 6717643386) LYMPH % (test code = 23.5 % 736-9) MONO % (test code = 6.0 % 5905-5) EOS % (test code = 2.0 % 713-8) BASO % (test code = 0.8 % 706-2) GRAN MAT x10^3(ANC) 4.35 10*3/uL 1.88-7.09 (test code = 1966927278) IMM GRAN x10^3 (test 0.05 10*3/uL 0.00-0.06 code = 6489205996) LYMPH x10^3 (test code 1.53 10*3/uL 1.32-3.29 = 731-0) MONO x10^3 (test code 0.39 10*3/uL 0.33-0.92 = 742-7) EOS x10^3 (test code = 0.13 10*3/uL 0.03-0.39 711-2) BASO x10^3 (test code 0.05 10*3/uL 0.01-0.07 = 704-7) Lab Interpretation Abnormal (test code = 27630-6) [facility] [id number] 11:41:00 Test Item Value Reference Range Interpretation Comments ABO & RH (test code = 20) AB Positive IAT (test code = 1185) Negative [facility] [id number] 11:41:00 Test Item Value Reference Range Interpretation Comments ABO & RH (test code = 20) AB Positive IAT (test code = 1185) Negative [facility] SPECIFIC [id number] 19:17:00 Test Item Value Reference Range Interpretation Comments POCT PH U (test code = 3254) n/a 5-8 POCT U LEUK EST (test code = n/a Negative - Negative 3263) POCT U NIT (test code = 3262) n/a Negative - Negative POCT U PROT (test code = 3259) Trace Negative - Negative POCT U GLU (test code = 3256) negative Negative - Negative POCT U KETONE (test code = 3258) n/a Negative - Negative POCT U BLD (test code = 3257) n/a Negative - Negative [facility] URINALYSIS W/O SPECIFIC [id number] 19:09:00 Test Item Value Reference Range Interpretation Comments POCT PH U (test code = 3254) 7 mg/dl 5-8 POCT U LEUK EST (test code = ++ Negative - Negative 3263) POCT U NIT (test code = 3262) Positive Negative - Negative POCT U PROT (test code = 3259) Negative Negative - Negative POCT U GLU (test code = 3256) normal Negative - Negative POCT U KETONE (test code = 3258) Negative Negative - Negative POCT U BLD (test code = 3257) 250 Negative - Negative [facility] URINALYSIS W/O SPECIFIC [id number] 20:58:00 Test Item Value Reference Range Interpretation Comments POCT PH U (test code = 3254) n/a 5-8 POCT U LEUK EST (test code = n/a Negative - Negative 3263) POCT U NIT (test code = 3262) n/a Negative - Negative POCT U PROT (test code = 3259) trace Negative - Negative POCT U GLU (test code = 3256) negative Negative - Negative POCT U KETONE (test code = 3258) n/a Negative - Negative POCT U BLD (test code = 3257) n/a Negative - Negative [facility] URINALYSIS W/O SPECIFIC [id number] 20:58:00 Test Item Value Reference Range Interpretation Comments POCT PH U (test code = 3254) n/a 5-8 POCT U LEUK EST (test code = n/a Negative - Negative 3263) POCT U NIT (test code = 3262) n/a Negative - Negative POCT U PROT (test code = 3259) trace Negative - Negative POCT U GLU (test code = 3256) negative Negative - Negative POCT U KETONE (test code = 3258) n/a Negative - Negative POCT U BLD (test code = 3257) n/a Negative - Negative [facility] URINALYSIS W/O SPECIFIC [id number] 22:46:00 Test Item Value Reference Range Interpretation Comments POCT PH U (test code = 3254) n/a 5-8 POCT U LEUK EST (test code = n/a Negative - Negative 3263) POCT U NIT (test code = 3262) n/a Negative - Negative POCT U PROT (test code = 3259) negative Negative - Negative POCT U GLU (test code = 3256) negative Negative - Negative POCT U KETONE (test code = 3258) n/a Negative - Negative POCT U BLD (test code = 3257) n/a Negative - Negative Lab Interpretation (test code = Normal 91106-0) [facility] URINALYSIS W/O SPECIFIC [id number] 16:17:00 Test Item Value Reference Range Interpretation Comments POCT PH U (test code = 3254) n/a 5-8 POCT U LEUK EST (test code = n/a Negative - Negative 3263) POCT U NIT (test code = 3262) n/a Negative - Negative POCT U PROT (test code = 3259) negative Negative - Negative POCT U GLU (test code = 3256) negative Negative - Negative POCT U KETONE (test code = 3258) n/a Negative - Negative POCT U BLD (test code = 3257) n/a Negative - Negative [facility] URINALYSIS W/O SPECIFIC [id number] 16:17:00 Test Item Value Reference Range Interpretation Comments POCT PH U (test code = 3254) n/a 5-8 POCT U LEUK EST (test code = n/a Negative - Negative 3263) POCT U NIT (test code = 3262) n/a Negative - Negative POCT U PROT (test code = 3259) negative Negative - Negative POCT U GLU (test code = 3256) negative Negative - Negative POCT U KETONE (test code = 3258) n/a Negative - Negative POCT U BLD (test code = 3257) n/a Negative - Negative [facility] [id number] 20:40:00 Test Item Value Reference Range Interpretation Comments POCT PREG (test code = 1605) Positive On board controls acceptable with C Yes Line (test code = 3574) POCT PREG LOT # (test code = 3575) POCT PREG TEST DATE (test code = 3576) Lab Interpretation (test code = Abnormal 16142-1) [facility] [id number] 20:05:00 Test Item Value Reference Range Interpretation Comments POCT U SP GRAV (test code = 1.010 mg/dl 1.005-1.025 3255) POCT PH U (test code = 3254) 7 mg/dl 5-8 POCT U LEUK EST (test code = Trace Negative - Negative 3263) POCT U NIT (test code = 3262) Negative Negative - Negative POCT U PROT (test code = Trace Negative - Negative 3259) POCT U GLU (test code = 3256) Negative Negative - Negative POCT U KETONE (test code = Negative Negative - Negative 3258) POCT U UROBILI (test code = 0.2 mg/dl 0.2-1 3260) POCT U BILI (test code = Negative Negative - Negative 3261) POCT U BLD (test code = 3257) Negative Negative - Negative POCT U COLOR (test code = Yellow 3266) POCT U APPEAR (test code = Clear 3267) Lab Interpretation (test code Abnormal = 53755-4) [facility], QUANTITATIVE, [id number] 05:57:24 Test Item Value Reference Range Interpretation Comments BETA HCG (test See_Comment [Automated m essage] code = The system DeliveryCheetah h [id number]) generated this result transmit amanda reference range : Non- fe male and male patien ts: <5 mIU/mL. The reference range was not used to interpret this result as normal/abnormal . VITALIY (test code Gestational Age ? ? = VITALIY) ?Range (mIU/mL) 1-10 ?Weeks ?[id number] Weeks ?[id number] Weeks ?[id number] Weeks ?[id number] Biotin has been reported to cause a negative bias, interpret results relative to patient's use of biotin. [facility], QUANTITATIVE, [id number] 05:57:24 Test Item Value Reference Range Interpretation Comments BETA HCG (test See_Comment [Automated m essage] code = The system [employer] [id number]) generated this result transmit amanda reference range : Non- fe male and male patien ts: <5 mIU/mL. The reference range was not used to interpret this result as normal/abnormal . VITALIY (test code Gestational Age ? ? = VITALIY) ?Range (mIU/mL) 1-10 ?Weeks ?[id number] Weeks ?[id number] Weeks ?9113-64282344-42 Weeks ?[id number] Biotin has been reported to cause a negative bias, interpret results relative to patient's use of biotin. [facility] [id number] 20:02:00 Test Item Value Reference Range Interpretation Comments POCT PREG (test code = 1605) Positive On board controls acceptable with C Yes Line (test code = 3574) POCT PREG LOT # (test code = 3575) POCT PREG TEST DATE (test code = 3576) [facility] URINALYSIS W/O SPECIFIC [id number] 20:02:00 Test Item Value Reference Range Interpretation Comments POCT PH U (test code = 3254) n/a 5-8 POCT U LEUK EST (test code = n/a Negative - Negative 3263) POCT U NIT (test code = 3262) n/a Negative - Negative POCT U PROT (test code = 3259) negative Negative - Negative POCT U GLU (test code = 3256) negative Negative - Negative POCT U KETONE (test code = 3258) n/a Negative - Negative POCT U BLD (test code = 3257) n/a Negative - Negative [facility] [id number] 14:55:00 Test Item Value Reference Range Interpretation Comments POCT PREG (test code = Negative 1605) On board controls Yes acceptable with C Line (test code = 3574) POCT PREG LOT # (test code = 3575) POCT PREG TEST DATE (test code = 3576) VITALIY (test code = VITALIY) accurate development and interpretation of all internal controls Lab Interpretation Normal (test code = 46644-9) [facility] History and Physical Notes Date/Time Note Provider Source 2023-01-13 07:03:52 [id number]:03:52Formatting of this note [facility] is different from the original.TRIAGE HISTORY & PHYSICALIDENTIFYING DATAEvangelina Harley is 22 year old, /White, 40w0d, female with SONDRA 01/13/2023, by Ultrasound. : 2000MRN: [id number] Care Physician: PATIENT DOES NOT HAVE A PCPCHIEF COMPLAINTElective repeat CD at 40 wks HISTORY OF PRESENT ILLNESSEvangelina Harley is a 22 year old female @ 40w0d reports some mucousy discharge but asymptomatic. +FM. No VB, LOF, or CTX. No pre-eclampsia sx or other complaints.PAST OBSTETRIC HISTORYOB History Para Term AB Living 2 1 1 0 0 1 SAB IAB Ectopic Multiple Live Births 0 0 0 0 1 # Outcome Date GA Lbr Calderon/2nd Weight Sex Delivery Anes PTL Lv 2 Current 1 Term 01/02/21 39w0d 2725 g F , L EPI DIGNA Complications: Non Reassuring Status, Abruptio Placenta PAST MEDICAL HISTORYProblem list: Patient Active Problem List Diagnosis Date Noted 40 weeks gestation of 01/13/2023 39 weeks gestation of 11/11/2022 Depression affecting in third trimester, antepartum 06/14/2022 Previous section complicating , antepartum condition or complication 06/14/2022 High-risk in third trimester 06/14/2022 Other depression 08/05/2021 Personal history of asthma 01/02/2021 Anemia, antepartum, third trimester 12/29/2020 Vapes nicotine containing substance 02/13/2020 History of ADHD 02/13/2020 Anxiety 2018 Operations: Past Surgical History: Procedure Laterality Date SECTION N/A 01/02/2021 Surgeon: Alexei Ch MD; Location: Labor and Delivery OR [facility] Past Medical History: Diagnosis Date ADHD 2004 not on meds ADHD (attention deficit hyperactivity disorder) Anemia of mother in , antepartum 12/29/2020 Anxiety 2018 not on meds Asthma outgrown Chlamydia infection during 12/29/2020 Depression 2018 ongoing, not on meds Social anxiety disorder CURRENT HEALTH STATUSMedications: Current Facility-Administered Medications Medication Dose Route Frequency Last Rate Last Admin carboprost (HEMABATE) injection 250 mcg 250 mcg Intramuscular Q2HPRN ceFAZolin (ANCEF) 2,000 mg in NaCl 0.9% (NS) 100 mL MINI-BAG 2,000 mg IV Piggyback O.R. HOLDING ONCE D5W-LR IV infusion 1,000 mL 1,000 mL IV Infusion TITRATE 125 mL/hr at 01/13/23 0611 1,000 mL at 01/13/23 0611 lactated ringers IV infusion 500 mL 500 mL IV Infusion PRN - SEE INSTRUCTIONS lidocaine 1% (PF) (XYLOCAINE) injection 0.3 mL 0.3 mL Infiltration PRN - SEE INSTRUCTIONS methylergonovine (METHERGINE) injection 0.2 mg 0.2 mg Intramuscular Q4HPRN miSOPROStoL (CYTOTEC) tablet 200 mcg 200 mcg Rectal PRN oxytocin (PITOCIN) 30 units in NS 500 mL IV infusion 600 mL/hr IV Infusion PRN sodium citrate-citric acid (BICITRA) 500-334 mg/5 mL solution 30 mL 30 mL Oral PRE-PROCEDURE ONCE terbutaline (BRETHINE) injection 0.25 mg 0.25 mg Subcutaneous PRN tranexamic acid (CYKLOKAPRON) 1,000 mg in NaCl 0.9% (NS) 250 mL piggyback 1,000 mg IV Piggyback PRN Allergies and drug reactions: Patient has no known allergies.HOME MEDICATIONSMedications Prior to Admission Medication Sig Dispense Refill Last Dose escitalopram oxalate 10 mg tablet Take 1 tablet by mouth every morning. 30 tablet 1 cephALEXin 500 mg capsule Take 1 capsule by mouth 4 (four) times daily for 7 days. 28 capsule 0 ferrous sulfate (IRON, FERROUS SULFATE,) 325 mg (65 mg iron) tablet Take 1 tablet by mouth in the morning and 1 tablet in the evening. 60 tablet 1 Not Taking proMETHazine 25 mg tablet Take 1 tablet by mouth every 6 (six) hours as needed for Nausea and Vomiting (N/V). 30 tablet 1 Not Taking vitamin w/FA tablet Take 1 tablet by mouth daily. 100 tablet 3 Not Taking SOCIAL HISTORYTobacco History: Social History Tobacco Use Smoking Status Every Day Smokeless Tobacco Former Quit date: 05/26/2020 Tobacco Comments vapes Drug History: Social History Substance and Sexual Activity Drug Use No Alcohol History: Social History Substance and Sexual Activity Alcohol Use Not Currently FAMILY HISTORYFamily History Problem Relation Age of Onset Alcohol abuse Mother Remote h/o Alcoholism. Mom reports that she has been sober since her mid 20's. Other - see comments Father Alcoholism. Sober x 2 weeks. Mom says that he just rec'd his 21st DWI a few weeks ago. Learning disabilities Brother 19 yo brother with H/O Dyslexia per Mom. Thyroid Maternal Grandmother Mom is unsure if was hypo or hyper. due to unknown lung disease per Mom. Psychiatry Maternal Grandmother Mom says that she was told that her Mom had a h/o a "chemical nervous breakdown" Cancer Maternal Grandfather due to pancreatic ca Aneurysm Maternal Aunt Possible aneurysm that ruptured. Thyroid Maternal Aunt Hyperthyroidism, per Mom. Depression Maternal Aunt 39 yo. Mom is unsure, but says that this sister was on Paxil and called it "her happy pill." Depression Maternal Uncle This uncle was the twin sib of Mom's 39 yo sister. He by suicide in his mid 20's, via GSW to the head. She says that he never mentioned being depressed and to her knowledge, no drugs/ETOH were involved. Arthritis NoFHx Asthma NoFHx defects NoFHx Breast Cancer NoFHx Colon Cancer NoFHx Ovarian Cancer NoFHx Uterine Cancer NoFHx Diabetes NoFHx Genetic NoFHx Heart NoFHx High cholesterol NoFHx Hypertension NoFHx Mental retardation NoFHx Neurological NoFHx Osteoporosis NoFHx Hyperthyroidism NoFHx REVIEW OF SYSTEMSGeneral: negativeConstitutional: negativeEyes: negativeENT/Mouth: negativeCardiovascular: negativeRespiratory: negativeGastrointestinal:negativeGenitouri nary: see HPIMusculoskeletal: negativeSkin/breast: negativeNeurological: negativePsychiatric: negativeEndocrine: negativeHemat/Lymph: negativeAllergic/Immuno:noneVITAL SIGNSBP: (119-122)/(75-80) Temp: [37.1 ?C (98.8 ?F)] Temp source: Temporal Artery (01/13 602)Pulse: [81-107] Resp: [18] SpO2: [99 %] Height: [162.6 cm (5' 4")] Weight: [80.7 kg (178 lb)-82 kg (180 lb 12.8 oz)] BMI (calculated): [30.55-31.03] PHYSICAL EXAMINATIONSGen: alert and oriented, well appearing, no distressCV: RRR, normal S1/S2, no m/r/gResp: normal work of breathing, lungs CTABAbd: gravid, soft, NTTPExt: no calf tenderness or edemaGU: Declined exam REVIEW OF LABORATORY, PATHOLOGY, AND RADIOLOGY DATALab results:Type & Screen HIV Hep B Syphilis Chlamydia ABO & RH Date Value Ref Range Status 07/25/2022 AB Positive Final No results found for: "HIVMULTIPLEX" No components found for: "HBSHBSAG" Syphilis IgG/IgM Date Value Ref Range Status 01/07/2022 Non-reactive Non-reactive Final C. trachomatis Nucleic Acid Date Value Ref Range Status 01/03/2023 Negative Negative Final IAT Date Value Ref Range Status 07/25/2022 Negative Final Varicella Rubella Glucose Group B Strep CBC VZV IgG antibody Date Value Ref Range Status 07/25/2022 Negative Negative Final Rubella screen IgG Date Value Ref Range Status 07/25/2022 Positive Negative Final GLUC 1 HR Date Value Ref Range Status 11/14/2022 163 120 - 170 mg/dL Final No results found for: "CGBS" HGB Date Value Ref Range Status 01/13/2023 9.0 (L) 11.6 - 15.0 g/dL Final HCT Date Value Ref Range Status 01/13/2023 29.8 (L) 35.7 - 45.2 % Final PLT Date Value Ref Range Status 01/13/2023 215 166 - 358 10*3/?L Final Active Hospital Problems Diagnosis Date Noted 40 weeks gestation of 01/13/2023 High-risk in third trimester 06/14/2022 Depression affecting in third trimester, antepartum 06/14/2022 Previous section complicating , antepartum condition or complication 06/14/2022 Anemia, antepartum, third trimester 12/29/2020 Anxiety 2018 not on meds Resolved Hospital Problems No resolved problems to display. Present on Admission: 40 weeks gestation of Anxiety High-risk in third trimester Depression affecting in third trimester, antepartum Previous section complicating , antepartum condition or complicationPlacenta Accreta ScreeningPrior ? : YesPrior Uterine Surgery?: YesPlacenta low lying/previa in current ? : NoScreening outcome:A positive screening outcome indicates a history of prior delivery or prior uterine surgery, AND the presence of either a placenta low lying/previa or ultrasound suspicion of PASD in the current . Negative screening.ASSESSMENT AND PLANJaycie Cricket is a 22 year old at 40w0d who presents for an elective repeat CD.CD x 1- admit for repeat CD- cephalic confirmedAnemia- hemoglobin 9 on presentationAnxiety/depression- will continue escitalopram 10 mg dailyE. Coli UTI on 12/06/22: s/p Macrobid. Urine culture with E. Coli again on 01/03/23. Keflex was prescribed. Patient states that she only took a couple of doses. Did not complete treatment. Will continue Keflex PP.PVT of Dr. Mary, please see [place] [id number] and physical [id number]:59:34History and physical [id number] 9|[id number] for patient cpjc49944-4Cneqdgm and physical noteLN[address] Tc[id number] [id number]:59:341.2.840 .[id number]|1.2.840.082784.1.13.104. [id number]
[2023-03-20 15:54] VITALS: BP 126/76; TEMP 97.9; O2SAT 100
== END 2023-03-20 15:50 | disposition home or self-care (01) ==
LOC: ER 15:31
DX: M25.562 Pain in left knee (principal); M25.561 Pain in right knee; M25.522 Pain in left elbow; M25.521 Pain in right elbow
CPT/HCPCS: 99281